=== PATIENT | male | born 1965 | race Caucasian/White ===

== ENCOUNTER → 2019-02-14 09:12 | Outpatient (CLI) | payer BC, SELFPAY ==
[2019-02-14 09:41] LABS: Basophils % 0.2 % (0.1-2.0); Eosinophils # 0.1 K/mm3 (0.0-0.4); Eosinophils % 0.7 % (0.1-12.0); Hematocrit 43.1 % (42.0-52.0); Hemoglobin 13.9 g/dL (14.1-18.0); Lymphocytes # 1.3 K/mm3 (0.7-4.5); Mean Corpuscular HGB Conc 32.4 g/dL (31.8-35.4); Mean Corpuscular Hemoglobin 28.5 pg (27.0-31.2); Mean Platelet Volume 6.6 fl (7.4-10.4); Monocytes # 0.3 K/mm3 (0.1-1.0); Monocytes % 3.5 % (1.7-9.3); Neutrophils # 5.8 K/mm3 (1.8-7.8); Neutrophils % 78.6 % (37.0-80.0); Platelet Count 312 K/mm3 (142-424); Red Cell Distribution Width 14.7 % (11.5-17.5); White Blood Count 7.4 K/mm3 (4.8-10.8)
[2019-02-14 11:48] LABS: Alanine Aminotransferase 29 U/L (12-78); Albumin Level 3.3 gm/dL (3.4-5.0); Albumin/Globulin Ratio 0.9 (1.1-1.8); Alkaline Phosphatase 88 U/L (46-116); Anion Gap 14.1 mEq/L (5-15); Aspartate Amino Transferase 11 U/L (15-37); Bilirubin,Total 0.4 mg/dL (0.2-1.0); Blood Urea Nitrogen 16 mg/dL (7-18); Calcium 8.7 mg/dL (8.5-10.1); Carbon Dioxide 26 mmol/L (21.0-32.0); Chloride 106 mmol/L (98-107); Cholesterol 184 mg/dL (140-200); Creatinine,Serum 0.76 mg/dL (0.70-1.30); Estimated Glomerular Filt Rate 107 ml/min (>60); GFR (African American) 129 ML/MIN (>60); Globulin 3.7 gm/dl (1.3-3.2); Glucose 112 mg/dL (74-106); HDL Cholesterol 37 mg/dL (27-67); LDL Cholesterol 138 mg/dL (0-130); Potassium 4.1 mmoL/L (3.5-5.1); Sodium 142 mmol/L (136-145); Thyroid Stimulating Hormone 0.73 uIU/ml (0.358-3.740); Triglycerides 44 mg/dL (30-200); VLDL Cholesterol 9 mg/dL (0-40)
[2019-02-15 16:38] LABS: Testosterone,Total 38 ng/dL (264-916); Vitamin B12 605 pg/mL (232-1245)
[2019-02-17 06:56] LABS: Deamidated Gliadin Abs, IgA 5 units (0-19); Deamidated Gliadin Abs, IgG 2 units (0-19); Endomysial IgA Antibody Negative (Negative); Tissue Transglutaminase IgA Ab <2 U/mL (0-3); Tissue Transglutaminase IgG Ab <2 U/mL (0-5)
[2019-02-19 06:06] LABS: Reticulin IgA Antibody Negative titer (Neg:<1:2.5)
[2019-02-19 06:19] LABS: Miscellaneous Test COMMENT:
== END ==
PROVIDERS: Nurse Practitioner; Visit Provider Nurse Practitioner Family
DX: I49.9 Cardiac arrhythmia, unspecified (principal); E29.1 Testicular hypofunction; D51.8 Other vitamin B12 deficiency anemias; R21 Rash and other nonspecific skin eruption
CPT/HCPCS: 36415; 80053; 80061; 82607; 83516; 84403; 84439; 84443; 85025; 86255; 86256

== ENCOUNTER → 2019-03-06 07:41 | Outpatient (CLI) | payer BC, SELFPAY ==
[2019-03-07 18:06] LABS: Testosterone,Total 43 ng/dL (264-916)
== END ==
PROVIDERS: Visit Provider Internal Medicine Adolescent Medicine
DX: R79.89 Other specified abnormal findings of blood chemistry (principal)
CPT/HCPCS: 36415; 84403

== ENCOUNTER → 2020-09-06 08:14 | Outpatient (CLI) | payer OTHER, SELFPAY ==
[2020-09-06 14:08] LABS: Alanine Aminotransferase 19 U/L (12-78); Albumin Level 4.2 g/dl (3.5-5.0); Albumin/Globulin Ratio 1.3 (1.1-1.8); Alkaline Phosphatase 81 U/L (38-126); Anion Gap 12.2 mEq/L (5-15); Aspartate Amino Transferase 23 U/L (17-59); Bilirubin,Total 0.7 mg/dl (0.2-1.3); Blood Urea Nitrogen 15 mg/dl (9-20); Calcium 9.5 mg/dl (8.4-10.2); Carbon Dioxide 25 mmol/L (22.0-30.0); Chloride 104 mmol/L (98-107); Chol/HDL Ratio 7.3 (1-3.5); Cholesterol 196 mg/dl (140-200); Estimated Glomerular Filt Rate 100 ml/min (>60); GFR (African American) 121 ML/MIN (>60); Globulin 3.3 g/dL (1.3-3.2); Glucose 106 mg/dl (74-100); HDL Cholesterol 27 mg/dl (40-60); Potassium 4.2 mmoL/L (3.5-5.1); Sodium 137 mmol/L (136-145); Total Protein,Serum 7.5 g/dl (6.3-8.2); Triglycerides 201 mg/dl (30-150); VLDL Cholesterol 40 mg/dL (0-40)
[2020-09-06 14:29] LABS: Basophils # 0.1 K/mm3 (0-0.2); Basophils % 1.5 % (0.1-2.0); Eosinophils # 0.3 K/mm3 (0.0-0.4); Eosinophils % 6.6 % (0.1-12.0); Hematocrit 39.9 % (42.0-52.0); Hemoglobin 12.8 g/dL (14.1-18.0); Lymphocytes # 1.5 K/mm3 (0.7-4.5); Lymphocytes % 36.9 % (10-50); Mean Corpuscular Hemoglobin 29.1 pg (27.0-31.2); Mean Corpuscular Volume 90.8 fl (80-94); Mean Platelet Volume 8.4 fl (7.4-10.4); Monocytes # 0.3 K/mm3 (0.1-1.0); Monocytes % 7.9 % (1.7-9.3); Neutrophils % 47.1 % (37.0-80.0); Platelet Count 266 K/mm3 (142-424); Red Blood Count 4.39 M/mm3 (4.60-6.20); Red Cell Distribution Width 13.9 % (11.5-17.5); White Blood Count 4.1 K/mm3 (4.8-10.8)
[2020-09-06 14:39] LABS: Thyroid Stimulating Hormone 2.89 uIU/mL (0.465-4.68)
[2020-09-06 14:57] LABS: Vitamin B12 590 pg/mL (239-931)
== END ==
PROVIDERS: Visit Provider Emergency Medicine
DX: R42 Dizziness and giddiness (principal); R00.1 Bradycardia, unspecified; I10 Essential (primary) hypertension
CPT/HCPCS: 36415; 80053; 80061; 82607; 84443; 85025

== ENCOUNTER → 2021-03-27 08:00 | Outpatient (CLI) | payer OTHER, SELFPAY ==
[2021-03-28 09:12] LABS: Basophils # 0.1 K/mm3 (0-0.2); Basophils % 1.2 % (0.1-2.0); Eosinophils # 0.2 K/mm3 (0.0-0.4); Eosinophils % 3.1 % (0.1-12.0); Hematocrit 48.1 % (42.0-52.0); Hemoglobin 14.7 g/dL (14.1-18.0); Lymphocytes # 1.8 K/mm3 (0.7-4.5); Lymphocytes % 29.7 % (10-50); Mean Corpuscular HGB Conc 30.7 g/dL (31.8-35.4); Mean Corpuscular Hemoglobin 30.2 pg (27.0-31.2); Mean Corpuscular Volume 98.4 fl (80-94); Mean Platelet Volume 9.7 fl (7.4-10.4); Monocytes # 0.6 K/mm3 (0.1-1.0); Monocytes % 10.3 % (1.7-9.3); Neutrophils # 3.4 K/mm3 (1.8-7.8); Neutrophils % 55.7 % (37.0-80.0); Platelet Count 339 K/mm3 (142-424); Red Blood Count 4.89 M/mm3 (4.60-6.20); Red Cell Distribution Width 14.7 % (11.5-17.5)
[2021-03-28 10:22] LABS: Alanine Aminotransferase 15 U/L (12-78); Albumin Level 3.8 g/dl (3.5-5.0); Albumin/Globulin Ratio 1.2 (1.1-1.8); Alkaline Phosphatase 81 U/L (38-126); Anion Gap 10.7 mEq/L (5-15); Aspartate Amino Transferase 24 U/L (17-59); Bilirubin,Total 0.3 mg/dl (0.2-1.3); Blood Urea Nitrogen 10 mg/dl (9-20); Calcium 8.8 mg/dl (8.4-10.2); Carbon Dioxide 29 mmol/L (22.0-30.0); Chloride 106 mmol/L (98-107); Chol/HDL Ratio 7.1 (1-3.5); Cholesterol 177 mg/dl (140-200); Estimated Glomerular Filt Rate 117 ml/min (>60); GFR (African American) 141 ML/MIN (>60); Globulin 3.3 g/dL (1.3-3.2); Glucose 98 mg/dl (74-100); HDL Cholesterol 25 mg/dl (40-60); Potassium 4.7 mmoL/L (3.5-5.1); Sodium 141 mmol/L (136-145); Total Protein,Serum 7.1 g/dl (6.3-8.2); Triglycerides 151 mg/dl (30-150); VLDL Cholesterol 30 mg/dL (0-40)
[2021-03-28 10:33] LABS: Direct LDL Cholesterol 107.03 mg/dL (100-129)
[2021-03-28 11:11] LABS: Vitamin B12 415 pg/mL (239-931)
[2021-04-02 09:09] LABS: Testosterone, Total, LC/MS 261.8 ng/dL (264.0-916.0); Testosterone,Free 5.8 pg/mL (7.2-24.0)
== END ==
PROVIDERS: Visit Provider Internal Medicine Adolescent Medicine
DX: I10 Essential (primary) hypertension (principal); D51.8 Other vitamin B12 deficiency anemias; E29.1 Testicular hypofunction
CPT/HCPCS: 80053; 80061; 82607; 84402; 84403; 85025

== ENCOUNTER → 2021-08-08 08:50 | Outpatient (CLI) | payer BC, SELFPAY ==
[2021-08-08 15:00] LABS: Chloride 104 mmol/L (98-107); Potassium 4.6 mmoL/L (3.5-5.1); Sodium 137 mmol/L (136-145)
[2021-08-08 15:03] LABS: Blood Urea Nitrogen 20 mg/dl (9-20); Estimated Glomerular Filt Rate 87 ml/min (>60); GFR (African American) 106 ML/MIN (>60)
[2021-08-08 15:04] LABS: Calcium 9.2 mg/dl (8.4-10.2); Glucose 100 mg/dl (74-100)
[2021-08-08 16:53] LABS: Anion Gap 10.6 mEq/L (5-15); Carbon Dioxide 27 mmol/L (22.0-30.0)
== END ==
PROVIDERS: Visit Provider Ophthalmology
DX: D49.2 Neoplasm of unspecified behavior of bone, soft tissue, and skin (principal)
CPT/HCPCS: 36415; 80048

== ENCOUNTER → 2021-12-05 09:02 | Outpatient (CLI) | payer BC, SELFPAY ==
--- NOTE | 2021-12-05 09:09 | US_ITS ---
FINAL REPORT CLINICAL HISTORY: LIVER CYST COMPARISON: September 17, 2016 FINDINGS: Sonographic images of the right upper quadrant were obtained. The pancreas is partially obscured. There are small presumed cysts in the liver measuring up to 21 x 11 x 9 mm. There is mild fatty infiltration. There is sludge in the gallbladder without evidence of gallstones. There is no evidence of biliary ductal dilatation.The common duct measures 4mm. The right kidney measures 11.6 cm in length. There is a 4 mm right renal stone. IMPRESSION: Small presumed cysts in the liver. 4 mm right renal stone. Reviewed, Interpreted and Dictated by Jose Best III, MD Transcribed by Alisia Basilio Authenticated and [facility]
== END ==
PROVIDERS: PCP Internal Medicine Adolescent Medicine; Visit Provider Nurse Practitioner Family
DX: K76.89 Other specified diseases of liver (principal)
CPT/HCPCS: 76705

== ENCOUNTER 2023-07-22 16:36 | Outpatient (CLI) | payer BC, SELFPAY ==
[2023-07-22 22:06] LABS: Hemoglobin A1C 5.4 % (4.0-6.0)
== END 2023-07-22 23:59 ==
LOC: LAB.DROPOF 16:37
PROVIDERS: PCP Family Medicine; Visit Provider Family Medicine
DX: E11.9 Type 2 diabetes mellitus without complications (principal)
CPT/HCPCS: 83036

== ENCOUNTER 2023-08-12 09:31 | Outpatient (CLI) | payer BC, SELFPAY ==
--- NOTE | 2023-08-12 09:40 | XR_ITS ---
FINAL REPORT CLINICAL HISTORY: Back pain, numbness tingling bilateral feet FINDINGS: LUMBAR SPINE AP and lateral views were obtained. There is no acute fracture or malalignment. There are mild degenerative changes with mild leftward curvature. Vertebrae are normal height. Prevertebral soft tissues are unremarkable. IMPRESSION: No acute bony abnormality. Reviewed, Interpreted and Dictated by Jose Best III, MD Transcribed by Camilla Wesley Authenticated and [facility]
[2023-08-12 10:25] LABS: Basophils # 0.1 K/mm3 (0-0.2); Basophils % 0.9 % (0.1-2.0); Eosinophils # 0.4 K/mm3 (0.0-0.4); Eosinophils % 6.4 % (0.1-12.0); Hematocrit 44.6 % (42.0-52.0); Hemoglobin 14.9 g/dL (14.1-18.0); Lymphocytes # 2.1 K/mm3 (0.7-4.5); Lymphocytes % 35.9 % (10-50); Mean Corpuscular HGB Conc 33.5 g/dL (31.8-35.4); Mean Corpuscular Hemoglobin 30.7 pg (27.0-31.2); Mean Corpuscular Volume 91.6 fl (80-94); Mean Platelet Volume 7.4 fl (7.4-10.4); Monocytes # 0.4 K/mm3 (0.1-1.0); Monocytes % 6.8 % (1.7-9.3); Neutrophils # 2.9 K/mm3 (1.8-7.8); Neutrophils % 49.9 % (37.0-80.0); Platelet Count 249 K/mm3 (142-424); Red Blood Count 4.87 M/mm3 (4.60-6.20); White Blood Count 5.9 K/mm3 (4.8-10.8)
[2023-08-12 11:19] LABS: Alanine Aminotransferase 29 U/L (12-78); Albumin/Globulin Ratio 1.4 (1.1-1.8); Alkaline Phosphatase 78 U/L (38-126); Anion Gap 11.1 mEq/L (5-15); Aspartate Amino Transferase 29 U/L (17-59); Bilirubin,Total 0.4 mg/dl (0.2-1.3); Blood Urea Nitrogen 17 mg/dl (9-20); Calcium 9.1 mg/dl (8.4-10.2); Carbon Dioxide 27 mmol/L (22.0-30.0); Chloride 106 mmol/L (98-107); Estimated Glomerular Filt Rate 116 ml/min (>60); GFR (African American) 140 ML/MIN (>60); Globulin 2.9 g/dL (1.3-3.2); Glucose 115 mg/dl (74-100); Potassium 4.1 mmoL/L (3.5-5.1); Sodium 140 mmol/L (136-145); Total Protein,Serum 6.9 g/dl (6.3-8.2)
[2023-08-12 12:25] LABS: Vitamin B12 519 pg/mL (239-931)
[2023-08-12 14:45] LABS: Thyroid Stimulating Hormone 1.93 uIU/mL (0.465-4.68)
[2023-08-13 14:30] LABS: Albumin 3.7 g/dL (2.9-4.4); Alpha-1-Globulin 0.2 g/dL (0.0-0.4); Alpha-2-Globulin 0.7 g/dL (0.4-1.0); Gamma Globulin 1.4 g/dL (0.4-1.8); Protein, Total 7.1 g/dL (6.0-8.5)
[2023-08-15 12:14] LABS: PDF SCANNED IMAGE
== END 2023-08-12 23:59 ==
LOC: LAB 09:32
PROVIDERS: PCP Family Medicine; Visit Provider Nurse Practitioner Family
DX: M54.50 Low back pain, unspecified (principal); R20.0 Anesthesia of skin; R20.2 Paresthesia of skin; E11.9 Type 2 diabetes mellitus without complications; G47.33 Obstructive sleep apnea (adult) (pediatric)
CPT/HCPCS: 36415; 72100; 80053; 82607; 82746; 84155; 84165; 84443; 85025; 86334

== ENCOUNTER 2024-09-15 15:51 | Outpatient (CLI) | payer BC, MEDICAID, SELFPAY | END 2024-09-15 23:59 | disposition home or self-care (01) | LOC: RT 15:52 | PROVIDERS: PCP Internal Medicine Adolescent Medicine; Visit Provider Internal Medicine Adolescent Medicine | DX: R00.2 Palpitations (principal) | CPT/HCPCS: 93225; 93226 ==

== ENCOUNTER 2025-03-11 11:30 | Outpatient (CLI) | payer MEDICAID, SELFPAY ==
--- OUTSIDE RECORDS SUMMARY | 2025-03-11 11:32 | XMS_ITS | Continuity of Care Document ---
Author Organization [facility]. If a dditional information is needed, contact Health Information Management at [phone] Address [address] [place] [address] Phone Care Team Providers Care Private Banker Name Role Phone Unavailable Unavailable Unavailable Unavailable Unavailable Unavailable Problems Patient encounter status Onset:08-Oct-2018 Evita Conroy MD Status:Acute Obstructive sleep apnea synd francie Onset:08-Oct-2018 Evita Conroy MD Hypertensive disorder Onset:08-Oct-2018 Evita Conroy MD Clinical finding absent Onset:08-Oct-2018 Evita Conroy MD Status:Acute Obstructive sleep apnea synd francie Onset:08-Oct-2018 Evita Conroy MD Status:Acute Hypertensive disorder Onset:08-Oct-2018 Evita Conroy MD Status:Acute Palpitations Onset:08-Oct-2018 Evita Conroy MD Status:Acute Testosterone level below ref erence range Onset:08-Oct-2018 Evita Conroy MD Status:Acute Ventricular tachycardia Onset:07-Oct-2018 Chandler Robledo Status:Acute Palpitations Onset:07-Oct-2018 Chandler Robledo Status:Acute Functional Status Functional finding 08-Oct-2018 Functional finding 07-Oct-2018 Functional finding 07-Oct-2018 Functional finding 07-Oct-2018 Allergies and Adverse Reactions No Known Allergies(Allergy) Onset: 07-Oct-2018 Medications carvedilol;3.125 MG ORAL Jennifer ly Start:07-Oct-2018 Comments:3.125 mg PO DAILY Social History Smoking Status Never smoked tobacco Recorded: 07-Oct-2018
--- OUTSIDE RECORDS SUMMARY | 2025-03-11 11:34 | XMS_ITS | Clinical Summary ---
Author Organization [facility] Address [address] [place] [address] Care Team Providers Care Franchise Sales Manager Name Role Phone Robi Salcedo MD Primary Care Provider [phone] Allergies No known active allergies Medications Multiple Vitamins-Minera ls (PRESERVISION AREDS 2+MULTI VIT PO) 9 Active NUTRITIONAL SUPPLEMENTS PO Take by mouth. Active metoprolol succinate XL (TOPROL-XL) 50 MG 24 hr tablet Take 1/2 to 1 tablet daily 90 tablet 3 3 Active Additional Information Patient taking differently: 50 mg Oral Daily, (No instructions reported), Informant: Self, Reported on 04/27/2024 furosemide (LASIX) 20 MG tablet Take 1 tablet by mouth Daily. 4 Active clotrimazole-be tamethasone (LOTRISONE) 1-0.05 % cream Every 12 (Twelve) Hours. 4 Active rosuvastatin (CRESTOR) 10 MG tablet Take 1 tablet by mouth Daily. 4 Active neomycin-polymy timmy-dexamethame thasone (POLYDEX) 3.5-32439-4.1 ointment ophthalmic ointment Apply 1 cm strip into the lower lid of the left eye 2 (Two) Times a Day. 3.5 g 12/21/2024 11:59 AM EDT 5 Active Active Problems Problem Noted Date Diagnosed Date Precordial chest pain 04/28/2024 Assessment & Plan (04/28/2024 12:11 PM EDT): Patient reports intermittent episodes of left-sided chest pain on exertion. 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 Stress echo for further evaluation Palpitations 09/17/2023 Assessment & Plan (09/17/2023 3:51 PM EDT): Patient reports worsening palpitations since last office visit. - 5-day Holter monitor for further evaluation. Shortness of breath 09/17/2023 Assessment & Plan (04/28/2024 12:11 PM EDT): Worsening shortness of breath on exertion. 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 Most recent echocardiogram did not show pulmonary hypertension caused by the fistula. -Stress test to rule out ischemia Assessment & Plan (09/17/2023 3:51 PM EDT): Mild shortness of breath on exertion. 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 Fistula from LAD to pulmonary artery noted. Normal LVEF Assessment & Plan (04/28/2024 12:14 PM EDT): Cardiac catheterization (10/09/2018): Normal coronary arteries. Fistula from LAD to pulmonary artery noted. Normal LVEF. Echocardiogram ordered at last visit to assess for pulmonary hypertension caused by fistula. Echocardiogram completed today did not reveal pulmonary hypertension. - Continue aspirin and crestor at current doses Assessment & Plan (10/23/2023 12:45 PM EDT): Cardiac catheterization (10/09/2018): Normal coronary arteries. Fistula from LAD to pulmonary artery noted. Normal LVEF. Echocardiogram ordered at last visit to assess for pulmonary hypertension caused by fistula. Echocardiogram completed today did not reveal pulmonary hypertension. - Continue aspirin 81 mg once daily. - Discuss statin medication at follow up visit. Assessment & Plan (09/17/2023 3:50 PM EDT): Cardiac catheterization (10/09/2018): Normal coronary arteries. Fistula from LAD to pulmonary artery noted. Normal LVEF - Continue aspirin 81 mg once daily. - Update echocardiogram to assess for pulmonary hypertension caused by fistula. Assessment & Plan (03/20/2023 1:36 PM EDT): Cardiac catheterization (10/09/2018): Normal coronary arteries. Fistula from LAD to pulmonary artery noted. Normal LVEF - Start aspirin 81 mg once daily. -Will need to order an echo at next office visit to assess for pulmonary hypertension caused by fistula. Patient is currently asymptomatic Ventricular tachycardia 10/08/2018 Overview (10/09/2018): [facility] presentation with near syncope and NS ventricular tachycardia noted on telemetry, 10/08/18 Cardiac catheterization (10/09/2018): Minimal CAD. Fistula from LAD to pulmonary artery noted. Normal LVEF Assessment & Plan (04/28/2024 12:13 PM EDT): Electrophysiology study 10/09/2018:1. Normal sinus rhythm at baseline. Normal Sinus Node function. Normal Av node function. Normal Ventricular refractory period. No induction of arrhthymias seen. Holter monitor recently completed due to increasing palpitations, which revealed some nonsustained ventricular tachycardia-all brief. 3 events noted, longest was 6 beats and fastest is 172 bpm. He has noticed a decrease in palpitations since last office visit. He has been under a lot of stress lately and feels like that could have been contributing to his symptoms. We discussed increasing metoprolol dose, he would like to monitor symptoms for now and if he notices an increase in palpitations, he will let us know and we can increase metoprolol to either 75 mg or 100 mg daily. - Continue metoprolol succinate 50 mg once daily Assessment & Plan (10/23/2023 12:40 PM EDT): Electrophysiology study 10/09/2018:1. Normal sinus rhythm at baseline. Normal Sinus Node function. Normal Av node function. Normal Ventricular refractory period. No induction of arrhthymias seen. Holter monitor recently completed due to increasing palpitations, which revealed some nonsustained ventricular tachycardia-all brief. 3 events noted, longest was 6 beats and fastest is 172 bpm. He has noticed a decrease in palpitations since last office visit. He has been under a lot of stress lately and feels like that could have been contributing to his symptoms. We discussed increasing metoprolol dose, he would like to monitor symptoms for now and if he notices an increase in palpitations, he will let us know and we can increase metoprolol to either 75 mg or 100 mg daily. - Continue metoprolol succinate 50 mg once daily. Assessment & Plan (03/19/2023 1:18 PM EDT): 2019 Electrophysiology study 10/09/2018:1. Normal sinus rhythm at baseline. Normal Sinus Node function. Normal Av node function. Normal Ventricular refractory period. No induction of arrhthymias seen. - Continue metoprolol succinate 50 mg once daily. - Discussed 7-day Holter monitor due to recent increase in palpitations. He would like to check with his insurance prior and will let us know if he decides to proceed with the heart monitor. Assessment & Plan (10/24/2022 12:54 PM EDT): Few episodes recently. Stop carvedilol. Start long-acting metoprolol for better compliance. EKG sinus rhythm today. Near syncope 10/08/2018 CAD (coronary artery disease) 07/01/2012 Assessment & Plan (10/24/2022 12:53 PM EDT): Only mild on cath. Stop carvedilol and start metoprolol. Starting aspirin. Diabetes mellitus HTN (hypertension) Assessment & Plan (10/23/2023 12:45 PM EDT): Hypertension is stable . Continue current treatment regimen. Dietary sodium restriction. Regular aerobic exercise. Blood pressure will be reassessed at the next regular appointment. Assessment & Plan (03/19/2023 1:16 PM EDT): Hypertension is stable . Continue current treatment regimen. Dietary sodium restriction. Regular aerobic exercise. Blood pressure will be reassessed at the next regular appointment. Sleep apnea Assessment & Plan (04/28/2024 12:10 PM EDT): Doing well on PAP therapy with good control and compliance. Download reviewed and interpreted today. AHI 0.4. - Continue PAP therapy at current settings Assessment & Plan (10/23/2023 12:49 PM EDT): Doing well on PAP therapy with good control and compliance. Download reviewed and interpreted today. AHI 0.5. - Continue PAP therapy at current settings. Assessment & Plan (09/17/2023 3:50 PM EDT): Patient did not bring device chip in today so download unavailable. He reports that he uses his CPAP consistently, he is having trouble with his mask leaking and has not replaced it in quite some time. He has received replacement device and is no longer on a recalled device. He is benefiting from PAP therapy with plan to continue at current settings Assessment & Plan (03/19/2023 1:12 PM EDT): Patient did not bring device chip in today so download unavailable. He reports that he uses his CPAP consistently, he is having trouble with his mask leaking and has not replaced it in quite some time. He has received replacement device and is no longer on a recalled device. He is benefiting from PAP therapy with plan to continue at current settings. Assessment & Plan (10/24/2022 12:52 PM EDT): Benefiting from PAP therapy. Plan to continue. See DME for mask fitting Family History Medical History Relation Name Comments No Known Problems Father No Known Problems Mother Relation Name Status Comments Father Mother Social History Tobacco Use Types Packs/Day Years Used Date Smoking Tobacco: Never Passive Smoke Exposure: Never Smokeless Tobacco: Never Tobacco Cessation:Counseling Given: Not Answered Alcohol Use Standard Drinks/Week Comments No 0 (1 standard drink = 0.6 oz pur e alcohol) AUDIT-C Answer Date Recorded Frequency of Alcohol Consumption Never 10/08/2018 Average Number of Drinks Not on file 019 Frequency of Binge Drinking Not on file 09/29 Abuse Screen Answer Date Recorded Unsafe at Home or Work/School Not on file Feels Threatened by Someone? Not on file 03/2023 Does Anyone Keep You from Co ntacting Others or Doint Things Outside the Home? Not on file 04/08/2023 Physical Sign of Abuse Present Not on file 1 Housing Stability Answer Date Recorded Current Living Arrangements Not on file 03/2023 Potentially Unsafe Housing Conditions Not on keyanna e 04/08/2023 Family and Community Support Answer Allen e Recorded Help with Day-to-Day Activities Not on file 04/08/2023 Lonely or Isolated Not on file 04/08/2023 Employment Answer Date Recorded Do you want help finding or keeping work or a raina b? Not on file 04/08/2023 Disabilities Answer Date Recorded Concentrating, Remembering, or Making Decisions Difficulty Not on file 04/08/2023 Doing Errands Independently Difficulty Not on fi le 04/08/2023 Education Answer Date Recorded Help with school or training? Not on file Preferred Language Not on file 04/08/2023 Sex and Gender Information Value Date Recorded Sex Assigned at Not on file Legal Sex Male 10:47 AM EDT Gender Identity Not on file Sexual Orientation Not on file Last Filed Vital Signs Vital Sign Reading Time Taken Comments Blood Pressure 126/72 04/27/2024 9:39 AM EDT Pulse 78 04/27/2024 9:39 AM EDT Temperature 36.6 C (97.8 F) 10/09/2018 3:53 AM EDT Respiratory Rate 12 10/09/2018 1:18 PM EDT Oxygen Saturation 98% 04/27/2024 9:39 AM EDT Inhaled Oxygen Concentration - - Weight 116 kg (256 lb) 04/27/2024 9:39 AM EDT Height 185.4 cm (6' 1 ) 04/27/2024 9:39 AM EDT Body Mass Index 33.78 04/27/2024 9:39 AM EDT Plan of Treatment Health Maintenance Due Date Last Done Comments DIABETIC EYE EXAM 1975 DIABETIC FOOT EXAM 1975 URINE MICROALBUMIN-CREATININ E RATIO (uACR) 1975 Pneumococcal Vaccine 50+ (1 of 2 - PCV) 01/15/1984 COLOGUARD 2010 COLON CANCER SCREENING 5 YEA R SIGMOIDOSCOPY 2010 COLONOSCOPY 2010 [address] CANCER SCREENING 2010 CT COLONOGRAPHY 2010 FECAL OCCULT BLOOD TEST 2010 FIT Testing (1 year) 2010 ZOSTER VACCINE (1 of 2) 2015 ANNUAL PHYSICAL 10/08/2018 HEMOGLOBIN A1C 10/08/2018 HEPATITIS C SCREENING 10/08/2018 COVID-19 Vaccine (2024-08 6 season) 2025 05/09/2022, 03/25/2021, 08/30/2020, Additional history exists INFLUENZA VACCINE 03/31/2025 03/25/2021, 04/21/2019 TDAP/TD VACCINES (2 - Td or Tdap) 11/15/2029 020 Medical Devices Implanted Type Area Twister In Device Identifier Shelf Expiration Date Model / Serial / Lot Icm Confirm Rx 1.4cc [id number] - [id number] - [id number] Implanted:Qty: 1 on 10/09/2018 by Efrain Avina MD at [facility] 10/21/2019 [id number] / [id number] / Insurance [facility] PPO Member Subscriber Plan / Payer (Ef fective 2018-Present) Name:Ananth Jackson Relation to Subscriber:Self Name:Ananth Jackson Payer ID:[id number] (NAIC) Type:Not on file Address: [facility] [address] [place] [id number] Advance Directives * CPR (Attempt to Resuscitate) (Latest Code Status on File) Date Activated Date Inactivated Comments 10/09/2018 9:17 AM 10/09/2018 9:26 PM Question Answer Comments Code Status (Patient has no pulse and is not breathing): CPR (Attempt to Resuscitate) Medical Interventions (Patie nt has pulse or is breathing): Full Care Teams Franchise Sales Manager Relationship Specialty Start Date End Date Robi Salcedo MD [address] [place] [address] PCP - General Family Medicine 10/14/23
== END 2025-03-11 23:59 | disposition home or self-care (01) ==
LOC: RT 11:31
PROVIDERS: PCP Family Medicine; Visit Provider Physician Assistant
DX: I49.1 Atrial premature depolarization (principal); I47.19 Other supraventricular tachycardia; I49.3 Ventricular premature depolarization; I47.29 Other ventricular tachycardia
CPT/HCPCS: 93270

== ENCOUNTER 2025-03-26 09:21 | Outpatient (CLI) | payer MEDICAID, SELFPAY ==
--- OUTSIDE RECORDS SUMMARY | 2024-10-03 17:30 | XMS_ITS ---
Author Organization [facility] Address [address] [place] [address] Care Team Providers Care Business Unit Leader Name Role Phone Martin Guerra Primary Care Provider [phone] Migration, Provider Unavailable Unavailable [facility]IT [facility] Conversion Encounter Medications Medication SIG (Take, [address] [place] [address] 10/03/2024 Provider Migration Palpitations R00.2 Assessments Encounter Date Diagnosis (ICD Code) Assessment Notes Treatment Notes Treatment Clinical Notes Section Notes 10/03/2024 Palpitations (ICD-10 - R00.2) Plan Of Treatment Medication Medication Name Sig Start Date Stop Date Notes Metoprolol Tartrate 50 MG 1 tab(s) orall y 2 times a day; Duration: 30 days 09/15/2024 Progress Notes * Ananth MISHRA ADOB:[birth year] (60 yo M)Acc No.[id number]:10/03/2024 Patient: Ananth HINES Provider: Raisa wood Migration :1965 A ge:59 Y S ex:Male Date:10/03/2024 Address:[address] [place] [address] [place] [place], [id number] Pcp:Martin Guerra Subjective: * Chief Complaints: * [...] Electronic signature of Prov ider Migration on 03/26/2025 at 09:30 AM EDT Sign off status: Pending * Provider: Raisa Coleman Date: 0 10/03/2024 Generated for Guillermina navarro/Nataly/Ruddyitting on: 0 03/26/2025 09:30 AM EDT
--- OUTSIDE RECORDS SUMMARY | 2025-01-26 08:30 | XMS_ITS ---
Author Organization [facility] Address [address] [place] [address] Care Team Providers Care Processor Helper Name Role Phone Martin Guerra Primary Care Provider Allergies No Known Allergies REASON FOR VISIT med ck, refills, Labs - A1C, discuss weight loss, Wegovy ?, hernia, rash in groin Medications Medication SIG (Take, Route, Frequency, Duration) Notes Start Date End Date Status Testosterone 100 MG/ML 1ml Intramuscular weekly; Duration: 30 days Active Lasix 20 MG 1 tab(s) orally once a day Active Rosuvastatin Calcium 10 MG 1 tab(s) oral ly once a day; Duration: 90 days 02/27/2024 Active ICaps AREDS Formula - as directed orally ; Duration: 30 day(s) Active C-PAP MACHINE Active Triamcinolone Acetonide 0.1 % 1 yuki applied topically 3 times a day; Duration: 7 days 07/03/2024 Active Metoprolol Tartrate 50 mg TAKE 1 TABLET 2 TIMES EACH DAY; Duration: 30 Active Clotrimazole-Betamethasone 1-0.05 % 1 application Externally Twice a day; Duration: 14 days 01/26/2025 Active Semaglutide (2 MG/DOSE) 8 MG/3ML 0.25 Subcutaneous weekly; Duration: 30 days 01/26/2025 Active Clotrimazole 1 % 1 yuki applied topica lly 2 times a day; Duration: 7 days 07/03/2024 Active Problems Problem Type SNOMED Code ICD Code Onset Dates Problem Status W/U Status Risk Notes Problem Type 2 diabetes mellitus with other specified complication, without long-term current use of insulin (E11.69) Active confirmed Vital Signs Temperature 98 degrees Fahrenheit 01/26/2025 Heart Rate 74 /min 01/26/2025 Blood pressure systolic 126 mm Hg 01/27/20 25 Blood pressure diastolic 88 mm Hg 025 Height 6 ft 1 in in 01/26/2025 Weight 265 lbs 01/26/2025 BMI 34.96 kg/m2 01/26/2025 Encounters Encounter Location Date Provider Diagnosis [facility] [address] [address] 01/26/2025 Martin Guerra Type 2 diabetes mellitus with other specified complication, without long-term current use of insulin E11.69 ; Tinea cruris B35.6 and Androgen deficiency E29.1 Assessments Encounter Date Diagnosis (ICD Code) Assessment Notes Treatment Notes Treatment Clinical Notes Section Notes 01/26/2025 Type 2 diabetes mellitus with other specified complication, without long-term current use of insulin (ICD-10 - E11.69) We discussed retrying Ozempic and refilled his prescription. We will f/u in four weeks to assess if he is having any side effects from the medication. 01/26/2025 Tinea cruris (ICD-10 - B35.6) We discussed applying clotrimazole-beta methasone to the area in his perineum and inguinal where he is experiending the rash. 01/26/2025 Androgen deficiency (ICD-10 - E29.1) We refilled his prescription for Testosterone suspensions. Plan Of Treatment Medication Medication Name Sig Start Date Stop Date Notes Testosterone 100 MG/ML 1ml Intramuscular weekly; Duration: 30 days Clotrimazole-Betamethasone 1-0.05 % 1 application Externally Twice a day; Duration: 14 days 01/26/2025 Semaglutide (2 MG/DOSE) 8 MG/3ML 0.25 Subcutaneous weekly; Duration: 30 days 01/26/2025 Treatment Notes Assessment Notes Type 2 diabetes mellitus wit h other specified complication, without long-term current use of insulin We discussed retrying Ozempic and refill ed his prescription. We will f/u in four weeks to assess if he is having any side effects from the medication. Tinea cruris We discussed applyin g clotrimazole-betamethasone to the area in his perineum and inguinal where he is experiending the rash. Androgen deficiency We refilled his pres cription for Testosterone suspensions. Next Appt Details Follow Up: 4 Weeks, Reason: Progress Notes * Ananth MISHRA ADOB:[birth year] (60 yo M)Acc No.[id number]:01/26/2025 Progress Notes Patient: Ananth HINES Provider: Rick Guerra MD :1965 A ge:60 Y S ex:Male Date:01/26/2025 Address:[address] [place] [address] [id number] Subjective: * Chief Complaints: * 1 . Med ck, refills. 2. Labs - A1C. 3. discuss weight loss, Wegovy ?. 4. Hernia. 5. Rash in groin. * HPI: g en: Mr. Mishra presents for a three month f/u. His main concern is weight loss. He recently saw a friend on a semaglutide, and he is interested in starting a semaglutide for weight loss. He has tried diet in the past, but has not seen the results that he did previously. He tried ozempic in the past and saw results but he had a change in his insurance and was unable to receive it. He has been experiencing episodes where he gets dizzy and then has to lay down where he feels as if his heart stops . He does not notice this when he takes his Metoprolol on a regular schedule. He has had an umbilical hernia for the past year. He states that it is tender to palpation. He needs a refill on testosterone injections. He is experiencing a rash in his inguinal areas and his perineum. He states that it itches really bad. He has used medications in the past that have gotten rid of it. 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 * Surgical History: r eduction of bilateral breast tissue age 12, Heart cath , colonoscopy 05/2015, eye surgery . * Hospitalization/Major Diagno stic Procedure: E nlarged pituatary teenager, Pre- syncope, EKG abnormal 09/2018. * Family History: F ather: , diagnosed with Cancer. M other: alive, diagnosed with Heart Disease.?Paternal Grand Father: . P aternal Grand Mother: . M aternal Grand Father: . M aternal Grand Mother: alive. S iblings: alive. C hildren: alive. 1 brother(s) - healthy. 1 son(s) - healthy. . * Social History: S moking A re you a:: nonsmoker. R ecreational drug use: no. Exercise: yes. Home smoke detector use: yes. Caffeine: yes, tea daily. Living Will: Yes. Alcohol: socially. Sexually active: yes. Travel outside [place]: yes, [place] 2013. Occupation: ui software developer. Lives alone. * Medications: T aking Testosterone 100 MG/ML Suspension as directed Intramuscular , Taking Lasix 20 MG Tablet 1 tab(s) orally once a day , Taking ICaps AREDS Formula - Tablet as directed orally , Taking C-PAP MACHINE , Taking Rosuvastatin Calcium 10 MG Tablet 1 tab(s) orally once a day , Taking Clotrimazole 1 % Cream 1 yuki applied topically 2 times a day , Taking Triamcinolone Acetonide 0.1 % Cream 1 yuki applied topically 3 times a day , Taking Metoprolol Tartrate 50 mg Tablet TAKE 1 TABLET 2 TIMES EACH DAY , Medication List reviewed and reconciled with the patient * Allergies: N .K.D.A. Objective: * Vitals: N urse: dw, Pain: 1, Temp: 98, RR: 18, HR: 74, BP: 126/88, Ht: 6 ft 1 in, Wt: 265, BMI:34.96. * Examination: G eneral Examination: General P leasant and Cooperative, NAD on RA,. Heart: R egular Rate and Rhythm, no murmur, rubs or gallops. Lungs: L CTAB, No wheezes, crackles or rhonchi, Good air movement,. Assessment: * Assessment: 1. T ype 2 diabetes mellitus with other specified complication, without long-term current use of insulin - E11.69 (Primary) 2 . T inea cruris - B35.6 3 . A ndrogen deficiency - E29.1 Plan: * Treatment: 2. T zara robin Start Clotrimazole-Betamethasone Cream, 1-0.05 %, 1 application, Externally, Twice a day, 14 days, 80 Gram, Refills 1. Notes: We discussed applying clotrimazole-betamethasone to the area in his perineum and inguinal where he is experiending the rash. 3. A ndrogen deficiency Refill Testosterone Suspension, 100 MG/ML, 1ml, Intramuscular, weekly, 30 days, 10 Milliliter, Refills 2. Notes: We refilled his prescription for Testosterone suspensions. * Follow Up: 4 Weeks * * Sign off status: Completed true * Provider: Rick Guerra MD Date: 01/26/2025 Generated for Quintini ramon/Nataly/eTransmitting on: 0 03/26/2025 09:30 AM EDT History and Physical Notes * HPI (History of Present Illness) Category Sub-Category Detail Notes Category Not es gen Mr. Mishra presents for a three month f/u. His main concern is weight loss. He recently saw a friend on a semaglutide, and he is interested in starting a semaglutide for weight loss. He has tried diet in the past, but has not seen the results that he did previously. He tried ozempic in the past and saw results but he had a change in his insurance and was unable to receive it. He has been experiencing episodes where he gets dizzy and then has to lay down where he feels as if his heart stops . He does not notice this when he takes his Metoprolol on a regular schedule. He has had an umbilical hernia for the past year. He states that it is tender to palpation. He needs a refill on testosterone injections. He is experiencing a rash in his inguinal areas and his perineum. He states that it itches really bad. He has used medications in the past that have gotten rid of it. Examination Category Sub-Category Detail Notes Category Not es General Examination Heart: Regular Rate and Rhythm, no murmur, rubs or gallops Lungs: LCTAB, No wheezes, c rackles or rhonchi, Good air movement, General Pleasant and Coopera tive, NAD on RA,
--- OUTSIDE RECORDS SUMMARY | 2025-02-23 10:45 | XMS_ITS ---
Author Organization [facility] PE D ERNESTO Address [address] [place] [address] Care Team Providers Care Automotive Customer Experience Advisor Name Role Phone Martin Guerra Primary Care Provider REASON FOR VISIT med ck, Wellness EXam Encounters Encounter Location Date Provider Diagnosis [address] [address] 02/23/2025 Martin Guerra Plan Of Treatment No Information Progress Notes * Ananth MISHRA ADOB:[birth year] (60 yo M)Acc No.[id number]:02/23/2025 Progress Notes Patient: Ananth HINES Provider: Rick Guerra MD :1965 A ge:60 Y S ex:Male Date:02/23/2025 Address:[facility] [place] [id number] Subjective: * Chief Complaints: * 1 . Med ck. 2. Wellness EXam. * Medical History: Objective: * Vitals: Assessment: Plan: * Treatment: * * Electronic signature of Ryan Guerra MD FAAP on 03/26/2025 at 09:30 AM EDT Sign off status: Pending * Provider: Rick Guerra MD Date: 0 02/23/2025 Generated for Printi ng/Faxing/eTransmitting on: 0 03/26/2025 09:30 AM EDT
--- OUTSIDE RECORDS SUMMARY | 2025-03-26 09:31 | XMS_ITS | Patient Health Record ---
Author Organization [facility] Address [address] [place] [address] Care Team Providers Care Cartridge Maker Name Role Phone Martin Guerra Primary Care Provider [phone] June Juan Unavailable [phone] June Santana Unavailable [phone] Migration, Provider Unavailable Unavailable Allergies No Known Allergies Results Component Value Reference Range Notes THYROID PANEL WITH TSH (44 ) Reviewed date:09/16/2024 04:48:46 PM Interpretation: Performing Lab:ERIC [facility] [address], [place] RenovablesZngsKQ[address] Jony Molina Notes/Report: NON-FASTING; NON-FASTING; NON-FASTING; NON-FASTING; NON-FAST FASTING:YES FASTING: YES T3 UPTAKE 32 22-35 % T4 (THYROXINE), TOTAL 7.5 4.9-10.5 mcg/dL FREE T4 INDEX (T7) 2.4 1.4-3.8 TSH 1.40 0.40-4.50 mIU/L LIPID PANEL, STANDARD (1160) Reviewed date:09/16/2024 04:48:46 PM Interpretation: Performing Lab:ERIC [employer] [facility], [place] RenovablesBokxYU[address] Jony Molina Notes/Report: NON-FASTING; NON-FASTING; NON-FASTING; NON-FASTING; NON-FAST FASTING:YES FASTING: YES CHOLESTEROL, TOTAL 149 <200 mg/dL HDL CHOLESTEROL 31 > OR = 40 mg/dL TRIGLYCERIDES 197 <150 mg/dL LDL-CHOLESTEROL 89 Reference range: <100 Desirable range <100 mg/dL for primary prevention; <70 mg/dL for patients with CHD or diabetic patients with > or = 2 CHD risk factors. LDL-C is now calculated using the Ernesto calculation, which is a validated novel method providing better accuracy than the Friedewald equation in the estimation of LDL-C. Juan SS et al. MAYELA. 2013;310(65): 1580-5525 (http://education.[employer].Xiaohongshu/faq/XNP979) CHOL/HDLC RATIO 4.8 <5.0 (calc) NON HDL CHOLESTEROL 118 <130 mg/dL (calc) For patients with diabetes plus 1 major ASCVD risk factor, treating to a non-HDL-C goal of <100 mg/dL (LDL-C of <70 mg/dL) is considered a therapeutic option. COMPREHENSIVE METABOLIC NORIS Henderson (26173) Reviewed date:09/16/2024 04:48:46 PM Interpretation: Performing Lab:ERIC, [facility] [facility], [facility] Onam[facility] HospitalUxxeGK[address] Jony Molina Notes/Report: NON-FASTING; NON-FASTING; NON-FASTING; NON-FASTING; NON-FAST FASTING:YES FASTING: YES GLUCOSE 102 65-99 mg/dL Fasting reference interval For someone without known diabetes, a glucose value between 100 and 125 mg/dL is consistent with prediabetes and should be confirmed with a follow-up test. UREA NITROGEN (BUN) 13 7-25 mg/dL CREATININE 0.81 0.70-1.30 mg/dL EGFR 102 > OR = 60 mL/min/1.73m2 BUN/CREATININE RATIO SEE NOTE: 6-22 (calc) Not Reported: BUN and Creatinine are within reference range. SODIUM 142 135-146 mmol/L POTASSIUM 4.0 3.5-5.3 mmol/L CHLORIDE 103 98-110 mmol/L CARBON DIOXIDE 28 20-32 mmol/L CALCIUM 9.6 8.6-10.3 mg/dL PROTEIN, TOTAL 7.5 6.1-8.1 g/dL ALBUMIN 4.4 3.6-5.1 g/dL GLOBULIN 3.1 1.9-3.7 g/dL (calc) ALBUMIN/GLOBULIN RATIO 1.4 1.0-2.5 (calc) BILIRUBIN, TOTAL 0.8 0.2-1.2 mg/dL ALKALINE PHOSPHATASE 76 35-144 U/L AST 20 10-35 U/L ALT 29 9-46 U/L MAGNESIUM (622) Reviewed date:09/16/2024 04:48:47 PM Interpretation: Performing Lab:ERIC, [facility] [address], [facility] Onam[facility] HospitalEhrnUK[address] Jony Molina Notes/Report: NON-FASTING; NON-FASTING; NON-FASTING; NON-FASTING; NON-FAST FASTING:YES FASTING: YES MAGNESIUM 2.3 1.5-2.5 mg/dL CBC (INCLUDES DIFF/PLT) (639 9) Reviewed date:09/16/2024 04:48:47 PM Interpretation: Performing Lab:EIRC, [facility] [address], [facility] HospitalChbhAZ[address] Jony Molina Notes/Report: NON-FASTING; NON-FASTING; NON-FASTING; NON-FASTING; NON-FAST FASTING:YES FASTING: YES WHITE BLOOD CELL COUNT 5.7 3.8-10.8 Thousand/ uL RED BLOOD CELL COUNT 5.49 4.20-5.80 Million/uL HEMOGLOBIN 16.3 13.2-17.1 g/dL HEMATOCRIT 48.9 38.5-50.0 % MCV 89.1 80.0-100.0 fL MCH 29.7 27.0-33.0 pg MCHC 33.3 32.0-36.0 g/dL For adults, a slight decrease in the calculated MCHC value (in the range of 30 to 32 g/dL) is most likely not clinically significant; however, it should be interpreted with caution in correlation with other red cell parameters and the patient's clinical condition. RDW 13.8 11.0-15.0 % PLATELET COUNT 238 140-400 Thousand/uL MPV 9.9 7.5-12.5 fL ABSOLUTE NEUTROPHILS 2804 7816-9927 cells/uL ABSOLUTE LYMPHOCYTES 3586 198-0828 cells/uL ABSOLUTE MONOCYTES 621 200-950 cells/uL ABSOLUTE EOSINOPHILS 291 15-500 cells/uL ABSOLUTE BASOPHILS 63 0-200 cells/uL NEUTROPHILS 49.2 LYMPHOCYTES 33.7 MONOCYTES 10.9 EOSINOPHILS 5.1 BASOPHILS 1.1 HEMOGLOBIN A1c (496) Reviewed date:09/16/2024 04:48:47 PM Interpretation: Performing Lab:ERIC [facility] [address], [place] ExokFY[address] Jony Molina Notes/Report: NON-FASTING; NON-FASTING; NON-FASTING; NON-FASTING; NON-FAST FASTING:YES FASTING: YES HEMOGLOBIN A1c 6.0 <5.7 % of total Hgb For someone without known diabetes, a hemoglobin A1c value between 5.7% and 6.4% is consistent with prediabetes and should be confirmed with a follow-up test. For someone with known diabetes, a value <7% indicates that their diabetes is well controlled. A1c targets should be individualized based on duration of diabetes, age, comorbid conditions, and other considerations. This assay result is consistent with an increased risk of diabetes. Currently, no consensus exists regarding use of hemoglobin A1c for diagnosis of diabetes for children. Holter Monitor, 48 hour Reviewed date:09/24/2024 11:06:58 AM Interpretation: Performing Lab: Notes/Report: THYROID PANEL WITH TSH (7444 ) Reviewed date:05/27/2024 03:53:28 PM Interpretation: Performing Lab:ERIC [facility] [address], [place]em[place] RenovablesGtpvDL[address] Jony Molina Notes/Report: NON-FASTING; NON-FASTING; NON-FASTING T3 UPTAKE 32 22-35 % T4 (THYROXINE), TOTAL 7.3 4.9-10.5 mcg/dL FREE T4 INDEX (T7) 2.3 1.4-3.8 TSH 1.17 0.40-4.50 mIU/L CBC (INCLUDES DIFF/PLT) (639 9) Reviewed date:05/27/2024 03:53:29 PM Interpretation: Performing Lab:ERIC [facility] [address], Anem[place] RenovablesEvpkWE[address] Jony Molina Notes/Report: NON-FASTING; NON-FASTING; NON-FASTING WHITE BLOOD CELL COUNT 5.1 3.8-10.8 Thousand/ uL RED BLOOD CELL COUNT 5.80 4.20-5.80 Million/uL HEMOGLOBIN 16.9 13.2-17.1 g/dL HEMATOCRIT 51.3 38.5-50.0 % MCV 88.4 80.0-100.0 fL MCH 29.1 27.0-33.0 pg MCHC 32.9 32.0-36.0 g/dL For adults, a slight decrease in the calculated MCHC value (in the range of 30 to 32 g/dL) is most likely not clinically significant; however, it should be interpreted with caution in correlation with other red cell parameters and the patient's clinical condition. RDW 15.0 11.0-15.0 % PLATELET COUNT 249 140-400 Thousand/uL MPV 10.3 7.5-12.5 fL ABSOLUTE NEUTROPHILS 2326 6330-8801 cells/uL ABSOLUTE LYMPHOCYTES 9999 654-1001 cells/uL ABSOLUTE MONOCYTES 699 200-950 cells/uL ABSOLUTE EOSINOPHILS 209 15-500 cells/uL ABSOLUTE BASOPHILS 61 0-200 cells/uL NEUTROPHILS 45.6 LYMPHOCYTES 35.4 MONOCYTES 13.7 EOSINOPHILS 4.1 BASOPHILS 1.2 TESTOSTERONE, TOTAL, MALES ( ADULT), IA (873) Reviewed date:05/27/2024 03:53:29 PM Interpretation: Performing Lab:ERIC, [facility]1355 [facility], [facility] HospitalFvgjHH[address] Jony Molina Notes/Report: NON-FASTING; NON-FASTING; NON-FASTING TESTOSTERONE, TOTAL, MALES (ADULT), IA 61 250-827 ng/dL In hypogonadal males, Testosterone, Total, LC/MS/MS, is the recommended assay due to the diminished accuracy of immunoassay at levels below 250 ng/dL. This test code (24830) must be collected in a red-top tube with no gel. Medications Medication SIG (Take, Route, Frequency, Duration) Notes Start Date End Date Status Testosterone Cypionate 100 MG/ML 1 mL Intramuscular weekly; Duration: 90 days 01/30/2025 Active Triamcinolone Acetonide 0.1 % 1 yuki applied topically 3 times a day; Duration: 7 days 07/03/2024 Active Metoprolol Tartrate 50 mg TAKE 1 TABLET 2 TIMES EACH DAY; Duration: 30 Active Clotrimazole-Betamethasone 1-0.05 % 1 application Externally Twice a day; Duration: 14 days 01/26/2025 Active Ozempic (0.25 or 0.5 MG/DOSE) 2 MG/3ML 0.25 mg once a week for 4 weeks and then 0.5 mg weekly Subcutaneous once a week; Duration: 28 days 02/05/2025 Active Lasix 20 MG 1 tab(s) orally once a day Active Rosuvastatin Calcium 10 MG 1 tab(s) oral ly once a day; Duration: 90 days 02/27/2024 Active Clotrimazole 1 % 1 yuki applied topica lly 2 times a day; Duration: 7 days 07/03/2024 Active ICaps AREDS Formula - as directed orally ; Duration: 30 day(s) Active C-PAP MACHINE Active Immunizations Vaccine Route Administration Date Status Comme nts Boostrix IM Intramuscular 11/16/2019 Administered FLUZONE 6MO - OLDER IM Intramuscular 04/21/2019 Administer ed FLUZONE 6MO - OLDER IM Intramuscular 05/26/2024 Administer ed SHINGRIX IM Intramuscular 05/26/2024 Administered SHINGRIX IM Intramuscular 09/17/2024 Administered Problems Problem Type SNOMED Code ICD Code Onset Dates Problem Status W/U Status Risk Notes Problem Type 2 diabetes mellitus with other specified complication (E11.69) Active confirmed Problem Generalized anxiety disorder (43964166) Generalized anxiety disorder (F41.1) Active confirmed Problem Onychomycosis (192781632) Onychomycosis (B35.1) Active confirmed Problem Essential hypertension (04043089) Essential hypertension (I10) Active confirmed Problem Hyperlipidemia (06678993) Hyperlipemia, idiopathic familial (E78.5) Active confirmed Problem Idiopathic peripheral neuropathy (95781924) Idiopathic peripheral neuropathy (G60.9) Active confirmed Problem Carpal tunnel syndrome (13702086) Carpal tunnel syndrome (G56.00) Active confirmed Problem Androgen deficiency (66442267) Androgen deficiency (E29.1) Active confirmed Problem Obesity (946301349) Obesity, unspecified (E66.9) Active confirmed Problem BMI 30+ - obesity (853589068) BMI 32.0-32.9,adult (Z68.32) Active confirmed Problem Fatty liver (398654243) Fatty liver (K76.0) Active confirmed Problem Obstructive sleep apnea syndrome (37239911) LISA (obstructive sleep apnea) (G47.33) Active confirmed Problem Liver cyst (75331596) Liver cyst (K76.89) Active confirmed Problem Meralgia paresthetica (64596325) Meralgia paresthetica of left side (G57.12) Active confirmed Problem Lipoma (03457323) Lipoma (D17.9) Active confirm ed Problem Vitamin B>12< deficiency anaemia (04975502) Vitamin B12 deficiency (dietary) anemia (D51.8) Active confirmed Problem Tension-type headache (270835545) Acute non intractable tension-type headache (G44.209) Active confirmed Problem Cardiac arrhythmia (498525172) Cardiac arrhythmia, unspecified cardiac arrhythmia type (I49.9) Active confirmed Problem Hyperlipidemia (81322100) Other hyperlipidemia (E78.49) Active confirmed Problem Type 2 diabetes mellitus with other specified complication, without long-term current use of insulin (E11.69) Active confirmed Vital Signs Heart Rate 74 /min 01/26/2025 Temperature 98 degrees Fahrenheit 01/26/2025 Blood pressure diastolic 88 mm Hg 01/26/2025 Height 6 ft 1 in in 01/26/2025 Blood pressure systolic 126 mm Hg 01/26/2025 Weight 265 lbs 01/26/2025 BMI 34.96 kg/m2 01/26/2025 Encounters Encounter Location Date Provider Diagnosis [facility] [address] [place] [address] 10/03/2024 Provider Migration Palpitations R00.[address] [address] 05/26/2024 Martin Guerra Jock itch B35.6 ; Other hyperlipidemia E78.49 ; Atypical mole D22.9 ; LISA (obstructive sleep apnea) G47.33 ; Testosterone deficiency E34.9 ; Healthcare maintenance Z00.00 and Encounter for immunization Z23 [address] [address] 06/04/2024 Martin Guerra Androgen deficiency E29.1 ; Vitamin B12 deficiency (dietary) anemia D51.8 and Abnormal thyroid blood test R79.[address] [address] 07/03/2024 June Santana Pruritic rash L28.[address] [address] 09/15/2024 Martin Guerra Type 2 diabetes mellitus with other specified complication E11.69 ; Palpitations R00.2 and Hyperlipemia, idiopathic familial E78.5 [facility] [address] [address] 09/17/2024 Martin Guerra Encounter for immunization Z23 [address] [address] 01/26/2025 Martin Guerra Type 2 diabetes mellitus with other specified complication, without long-term current use of insulin E11.69 ; Tinea cruris B35.6 and Androgen deficiency E29.[address] [address] 01/29/2025 Martin Guerra Androgen deficiency E29.[address] [address] 02/05/2025 June Juan Type 2 diabetes mellitus with other specified complication, without long-term current use of insulin E11.69 Assessments Encounter Date Diagnosis (ICD Code) Assessment Notes Treatment Notes Treatment Clinical Notes Section Notes 05/26/2024 Jock itch (ICD-10 - B35.6) -Likely jock itch as rash is typically associated with heat and moist conditions -Counseled patient on wearing 100% cotton underwear as well as loose clothing. Keep good hygiene and change undergarments during the day if needed. - reports rash continues to come and go but improves when using ointments - instructed to continue lotrisone ointment twice daily to area when rash occurs, and encouraged good hygiene habits 05/26/2024 Other hyperlipidemia (ICD-10 - E78.49) - started rosuvastatin 10 mg daily in 11/2023 tolerating well, denies side effects, but is taking maybe everyother day due to forgetting - brought outside lab work, LDL went from 123 to 108 - will obtain repeat lipid panel at next follow up 06/04/2024 Androgen deficiency (ICD-10 - E29.1) Testosterone level 61. Has multiple symptoms related androgen deficiency. Restart intramuscular injections every 2 weeks as noted on prescription. Follow-up in August will redo labs at that point, monitor blood counts and response to therapy. 06/04/2024 Vitamin B12 deficiency (dietary) anemia (ICD-10 - D51.8) Overall improving 07/03/2024 Pruritic rash (ICD-10 - L28.2) Patient states it feels like and looks like his jock itch rash. Have prescribed clotrimazole topical and can use sparingly topical triamcinolone for his itching symptoms. Also discussed taking Pretty once daily x 1 month. Expect rash to be improving with treatment within 5 days. No active sign of secondary infection, but discussed if he develops discharge he should return to clinic. If no improvement or worsening, then patient should return to clinic. Patient voices understanding and agrees with the plan of care above. 09/15/2024 Type 2 diabetes mellitus with other specified complication (ICD-10 - E11.69) 09/15/2024 Palpitations (ICD-10 - R00.2) Will switch metoprolol to succinate to tartrate 50 twice daily for hopefully better palpitation control. Short-term follow-up scheduled. Ordered a Holter monitor and labs. Please note I will review all these personally including the Holter monitor 09/17/2024 Encounter for immunization (ICD-10 - Z23) 10/03/2024 Palpitations (ICD-10 - R00.2) 01/26/2025 Tinea cruris (ICD-10 - B35.6) We discussed applying clotrimazole-beta methasone to the area in his perineum and inguinal where he is experiending the rash. 01/26/2025 Type 2 diabetes mellitus with other specified complication, without long-term current use of insulin (ICD-10 - E11.69) We discussed retrying Ozempic and refilled his prescription. We will f/u in four weeks to assess if he is having any side effects from the medication. 01/29/2025 Androgen deficiency (ICD-10 - E29.1) 02/05/2025 Type 2 diabetes mellitus with other specified complication, without long-term current use of insulin (ICD-10 - E11.69) 01/26/2025 Androgen deficiency (ICD-10 - E29.1) We refilled his prescription for Testosterone suspensions. 09/15/2024 Hyperlipemia, idiopathic familial (ICD-10 - E78.5) 06/04/2024 Abnormal thyroid blood test (ICD-10 - R79.89) Repeat thyroid blood test are completely normal. No changes in plan at this point. Gave copy of labs to patient and reassured him 05/26/2024 Atypical mole (ICD-10 - D22.9) - mole removed at prior visit, healing well - tissue pathology was keratin debris - is following with Dermatology with upcoming appointment 05/26/2024 LISA (obstructive sleep apnea) (ICD-10 - G47.33) - is compliant with home nightly CPAP - chronic, well controlled - is going to [employer] store to obtain new CPAP mask that fits better 05/26/2024 Testosterone deficiency (ICD-10 - E34.9) - had been taking testosterone injections for Low T - has been out for 2 months, endorses increased fatigue and low libido - will obtain repeat testosterone level today along with CBC to check Hgb and Hct levels prior to restarting therapy 05/26/2024 Healthcare maintenance (ICD-10 - Z00.00) - due for flu and shingles, completing today - due for colonoscopy, ordering this to complete prior to next follow up 05/26/2024 Encounter for immunization (ICD-10 - Z23) - influenza vaccination today, tolerated well with no immediate complications - 1st dose shingrex vaccination today, tolerated well with no immediate complications Plan Of Treatment Pending Test Test Name Order Date NVC STUDY OF UPPER EXTREMITIES 0 CT Scan : Abdomen and Pelvis with contra st 07/14/2018 H-VITAMIN B12 03/15/2015 H-CMP 03/15/2015 H-LIPID PANEL 03/15/2015 H-LIPID PANEL 01/26/2011 H-PSA SCREEN 03/15/2015 H-TSH 03/15/2015 H-VIT D, 25-HYDROXY 03/15/2015 C-CBC 07/14/2018 C-CBC 05/16/2017 C-CBC 09/07/2019 C-CMP 09/07/2019 C-CMP 05/16/2017 C-CMP 07/14/2018 C-LIPID PANEL 05/16/2017 C-TSH 05/16/2017 C-VITAMIN B12 05/16/2017 C-HGBA1C 09/07/2019 CT Scan : Liver 10/16/2021 NVC/EMG STUDY OF LOWER EXTREMITIES 09/14 H-TESTOSTERONE 03/15/2015 M-Complete Blood Count Auto Diff 019 M-Comprehensive Metabolic Panel 12/25/19 19 M-Lipid Panel 12/24/2018 M-Free T4 (Free Thyroxine) 12/24/2018 M-Thyroid Stimulating Hormone 12/24/2018 M-Vitamin B12 12/24/2018 M-Vitamin B12 03/27/2021 M-Vitamin B12 02/13/2019 M-Testosterone 02/26/2019 M-Testosterone 02/13/2019 M-Testosterone 12/24/2018 Future Test Test Name Order Date H-CBC with AUTO DIFF 03/12/2016 H-VITAMIN B12 03/12/2016 H-CMP 03/12/2016 H-LIPID PANEL 03/12/2016 H-TSH 03/12/2016 H-TESTOSTERONE 03/12/2016 Insurance Providers Payer Name Payer Address Payer Phone Subscriber Number Group Number Insured Name Patient Relationship to Insured Coverage Start Date Coverage End Date [employer] [place] [employer] [address] [address] [place] [address] [phone] [id number] Ananth Jackson Self - patient is the insured Medications Administered Medication Instructions Date of Administration Dosage Notes Ceftriaxone 500 10/30/2013 1000 mg Ceftriaxone 500 03/02/2014 500 Ceftriaxone 500 03/09/2016 250 mg Dexamethasone 4mg Injection 10/13/2021 4 mg Triamcinolone Acetonide 40mg Injection 12/24/2018 1 mL Kenalog 10/08/2012 1 Kenalog 10/30/2013 2 Kenalog 03/02/2014 1 Kenalog 03/08/2015 1 mL Kenalog 03/09/2016 1 mL Medical (General) History Medical History History ICD Code Anxiety with depression hypogonadism, testiucular rhinitis Sleep Apnea - uses CPAP @ [facility] Gynecomastia 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
--- OUTSIDE RECORDS SUMMARY | 2025-03-26 09:31 | XMS_ITS | Clinical Summary ---
[facility] Address [address] [place] [address] Care Team Providers Care Acute Care Nursing Assistant Name Role Phone Robi Salcedo MD Primary Care Provider [phone] Allergies No known active allergies Medications Multiple [...] Daily. 4 Active neomycin-polymy timmy-dexamethame thasone (POLYDEX) 3.5-57795-7.1 ointment ophthalmic ointment Apply 1 cm strip [...] currently asymptomatic Ventricular tachycardia 10/08/2018 Overview (10/09/2018): [place] ER presentation with near syncope and NS [...] EXAM 1975 DIABETIC FOOT EXAM 1975 URINE MICROALBUMIN-CREATININE RATIO (uACR) 1975 Pneumococcal Vaccine 50+ (1 of 2 - PCV) 01/15/1984 COLOGUARD 2010 COLON CANCER SCREENING 5 YEA R SIGMOIDOSCOPY 2010 COLONOSCOPY 2010 [address]AL CANCER SCREENING 2010 CT COLONOGRAPHY 2010 FECAL OCCULT BLOOD TEST 2010 FIT Testing (1 year) 2010 ZOSTER VACCINE (1 of 2) 2015 ANNUAL PHYSICAL 10/08/2018 HEMOGLOBIN A1C 10/08/2018 HEPATITIS C SCREENING 10/08/2018 INFLUENZA VACCINE 01/29/2025 03/25/2021, 04/21/2019 TDAP/TD VACCINES (2 - Td or Tdap) 11/15/2029 020 Medical Devices Implanted Type Area Compensation/Benefits Specialist Device Identifier Shelf Expiration Date Model / Serial / Lot Icm Confirm Rx 1.4cc [id number] - [id number] - [id number] Implanted:Qty: 1 on 10/09/2018 by Efrain Avina MD at [facility] 10/21/2019 [id number] / [id number] / Insurance [facility] PPO Advance Directives * CPR (Attempt to Resuscitate) (Latest Code Status on File) Date Activated Date Inactivated Comments 10/09/2018 9:17 AM 10/09/2018 9:26 PM Question Answer Comments Code Status (Patient has no pulse and is not breathing): CPR (Attempt to Resuscitate) Medical Interventions (Patie nt has pulse or is breathing): Full Care Teams Acute Care Nursing Assistant Relationship Specialty Start Date End Date Robi Salcedo MD [address] [place] [id number] PCP - General Family Medicine 10/14/23
--- NOTE | 2025-03-26 09:45 | CA_ITS ---
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 2D Dimensions IVSd 1.74 cm LVEF (Visual) 61.40 % PWd 1.05 cm LA Volume 60.40 mL LVDd 4.74 cm LA Volume Index 25.10 mL/m2 (M/F) 16-34 LVDs 3.18 cm EF AP4 53.60 % Aortic Root 2.89 cm GL Strain -22.9 % Left Atrium 4.76 cm RVID Base (AP4) 3.05 cm (M/F) 2.5-4.1 LVOT 2.01 cm (M/F) 1.5-2.5 M-Mode Dimensions LVDd 4.74 cm (3.5-5.7) Ao Diam 3.74 cm (2.0-3.7) LVDs 3.77 cm (3.5-5.7) IVSd 1.74 cm (0.6-1.1) PWd 1.05 cm (0.6-1.1) EF (Teich) 57.30% EPSs 0.53 cm FS 31.23% EDV (Teich) 142.50 mL TAPSE 2.06 (<1.7) ESV (Teich) 60.80 mL LV Diastology E Decel Time 242 (160-240 msec) E/A Ratio 0.87 MED E' 5.6 (>= 7 cm/sec) MED A' 10.00 cm/s E'/MED E' Ratio 11.55 (<= 14) LAT E' 7.3 (>= 10 cm/sec) LAT A' 12.90 cm/s E/LAT E' Ratio 8.86 (<= 14) Aortic Valve LVOT Max 97.0 (70-110 cm/s) ADRIENNE Index 1.27 cm2/m2 LVOT VTI 20.64 cm AoV Peak Norris. 108.0 (50-130 cm/s) AO Mean GR. 2.40 (<5 mmHg) AO VTI 21.4 (18-25 cm) ADRIENNE (VTI) 3.06 (2.5-4.5 cm2) Mitral Valve MV E Max Norris. 65.0 (40-130 cm/s) MV A Velocity 75.0 (40-130 cm/s) E/A Ratio 0.87 MV Decel. Time 242 (160-240 ms) Pulmonary Valve CT End VMAX 91.0 cm/s Tricuspid Valve TR P. Velocity 199.00 cm/s RAP Estimate 10.00 mmHg RVSP 25.90 mmHg Left Ventricle The left ventricle is normal size. Left ventricular systolic function is normal. The left ventricular ejection fraction is within the normal range. There is increased left ventricular wall thickness. Proximal septal thickening is present. There is normal LV segmental wall motion. The left ventricular diastolic function is indeterminate. LVEF is 55% Right Ventricle The right ventricle is mildly dilated. The right ventricular systolic function is normal. Atria The left atrium is mildly dilated. The right atrium is mildly dilated. There is no color Doppler evidence of interatrial shunt. Aortic Valve The aortic valve is mildly thickened. There is no hemodynamically significant aortic valvular stenosis. Trace aortic regurgitation is present. Mitral Valve The mitral valve is normal in structure. No evidence of mitral valve stenosis. Trace mitral regurgitation is present. Tricuspid Valve The tricuspid valve leaflets are thin and pliable. Mild tricuspid regurgitation. RVSP is 20-25 mmHg. Pulmonic Valve The pulmonary valve is grossly normal in structure. Mild pulmonic valve regurgitation is present. Great Vessels The aortic root is normal in size. IVC is normal in size and collapses >50% with inspiration. Pericardium There is no pericardial effusion. Other Information Study Quality: Fair Conclusion Normal biventricular systolic function. Mild RV dilation. Mild biatrial dilation. Mild TR, mild PI. RVSP 20-25 mmHg. Electronically signed by : Cassy Law MD 03/29/2025 12:50:10
== END 2025-03-26 23:59 | disposition home or self-care (01) ==
LOC: RT 09:22
PROVIDERS: PCP Family Medicine; Visit Provider Physician Assistant
DX: I08.8 Other rheumatic multiple valve diseases (principal); I47.29 Other ventricular tachycardia; G47.33 Obstructive sleep apnea (adult) (pediatric); Q25.72 Congenital pulmonary arteriovenous malformation; Q24.5 Malformation of coronary vessels
CPT/HCPCS: 93306

== ENCOUNTER 2025-04-28 07:58 | Outpatient (CLI) | payer MEDICAID, SELFPAY ==
--- OUTSIDE RECORDS SUMMARY | 2024-06-09 06:30 | XMS_ITS ---
Author Organization [facility] Address [address] [place] [address] Care Team Providers Care Cooker Operator Name Role Phone Martin Guerra Primary Care Provider REASON FOR VISIT DISCUSS LABS Encounters Encounter Location Date Provider Diagnosis [facility] [address] [address] 06/09/2024 Martin Guerra Plan Of Treatment No Information Progress Notes * Ananth MISHRA ADOB:[birth year] (60 yo M)Acc No.[id number]:06/09/2024 Progress Notes Patient: Ananth HINES Provider: Rick Guerra MD :1965 A ge:59 Y S ex:Male Date:06/09/2024 Address:[facility] [address] [id number] Subjective: * Chief Complaints: * 1 . DISCUSS LABS. * Medical History: Objective: * Vitals: Assessment: Plan: * Treatment: * * Electronic signature of Ryan Guerra MD FAAP on 04/28/2025 at 08:02 AM EDT Sign off status: Pending * Provider: Rick Guerra MD Date: 08/10/2023 Generated for Printi ng/Faxing/eTransmitting on: 08:02 AM EDT
--- OUTSIDE RECORDS SUMMARY | 2024-10-03 17:30 | XMS_ITS ---
Author Organization [facility] Address [address] [place] [address] Care Team Providers Care Weapons Officer Name Role Phone Martin Guerra Primary Care Provider Migration, Provider Unavailable Unavailable REASON FOR VISIT [facility] Conversion Encounter Medications Medication SIG (Take, [address] [place] [address] 10/03/2024 Provider Migration Palpitations R00.2 Assessments Encounter Date Diagnosis (ICD Code) Assessment Notes Treatment Notes Treatment Clinical Notes Section Notes 10/03/2024 Palpitations (ICD-10 - R00.2) Plan Of Treatment Medication Medication Name Sig Start Date Stop Date Notes Metoprolol Tartrate 50 MG 1 tab(s) orall y 2 times a day; Duration: 30 days 09/15/2024 Progress Notes * Ananth MISHRA ADOB:[birth year] (60 yo M)Acc No.[id number]:10/03/2024 Patient: Ananth HINES Provider: Raisa wood Migration :1965 A ge:59 Y S ex:Male Date:10/03/2024 Address:[address] [place] [address] [place], [id number] Pcp:Martin Guerra Subjective: * Chief Complaints: * [...] Electronic signature of Prov ider Migration on 04/28/2025 at 08:01 AM EDT Sign off status: Pending * Provider: Raisa Coleman Date: 0 10/03/2024 Generated for Guillermina navarro/Nataly/Ruddyitting on: 1 08:01 AM EDT
--- OUTSIDE RECORDS SUMMARY | 2025-02-23 10:45 | XMS_ITS ---
Author Organization [facility] PE D ERNESTO Address [address] [place] [address] Care Team Providers Care Onsite Case Manager Name Role Phone Martin Guerra Primary Care Provider REASON FOR VISIT med ck, Wellness EXam Encounters Encounter Location Date Provider Diagnosis [address] [address] 02/23/2025 Martin Guerra Plan Of Treatment No Information Progress Notes * Ananth MISHRA ADOB:[birth year] (60 yo M)Acc No.[id number]:02/23/2025 Progress Notes Patient: Ananth HINES Provider: Rick Guerra MD :1965 A ge:60 Y S ex:Male Date:02/23/2025 Address:[facility] [place] [id number] Subjective: * Chief Complaints: * 1 . Med ck. 2. Wellness EXam. * Medical History: Objective: * Vitals: Assessment: Plan: * Treatment: * * Electronic signature of Ryan Guerra MD FAAP on 04/28/2025 at 08:01 AM EDT Sign off status: Pending * Provider: Rick Guerra MD Date: 0 02/23/2025 Generated for Printi ng/Faxing/eTransmitting on: 1 08:01 AM EDT
--- NOTE | 2025-04-28 | CA_ITS ---
APPROVED REPORT Exam: Exercise Treadmill Technologist: Kamille Hicks Stress Nurse: Nadine MARK, RN Ht: 6 ft 1 in Wt: 261 lbs BSA: 2.41 m2 HR: 73 bpm BP: 136/87 mmHg Indications: Chest pain, Shortness of Breath, Coronary Artery Disease, Abnormal ECG Stress Test Details Test: Exercise stress testing was performed using a Jorge protocol. HR Resting HR: 73 bpm Max Heart Rate (APMHR): 160.565499 bpm Max HR Achieved: 155 bpm Target HR (85% APMHR): 136.616279 bpm % of APMHR: 96.88 Recovery HR: 96 bpm BP Resting BP: 136.0/87.0 mmHg Max BP: 180.0/92.0 mmHg Recovery BP: 146.0/98.0 mmHg ECG Resting ECG: Sinus rhythm Stress ECG Conclusion Lungs clear to auscultation prior to test start. Patient requested to stop test due to leg pain. Symptoms: Leg pain Arrhythmias/Ectopy: None ST-T Changes: 1 mm flattening/downsloping ST segment depression. Conclusion: Abnormal ECG tracing. Electronically signed by : Cassy Law MD 05/02/2025 16:15:39
--- NOTE | 2025-04-28 08:00 | NM_ITS ---
APPROVED REPORT Exam: Nuclear Stress Test Indication: Chest pain, SOB, HTN, High cholesterol, Family history Patient Location: Outpatient Stress Tech: Kamille Hicks [place] Tech:Eva Graves, ARRT, RT (R)(N) Ht: 6 ft 1 in Wt: 258 lbs HR: 67 bpm BP: 136/87 mmHg BSA: 2.40 m2 TID: 1.07 BMI: 34.0 History: Chest pain, SOB, HTN, High cholesterol, Family history Procedure: Patient exercised on Jorge protocol 6:45 minutes and sec, resting heart rate 67 bpm, resting blood pressure 136/87 mmHg, with exercise maximum heart rate achived was 155 bpm which is 96 % of the maximum predicted heart rate and blood pressure was 180/92 mmHg. Test was stopped due to SOB. Patient has average exercise capacity, achieved 10.3 METs of workload on treadmill, the blood pressure response to exercise was normal. Cardiac Stress and Resting SPECT Images: Cardiac Stress and Resting SPECT images were obtained using technetium 99m Myoview 32.7 mCi stress and 10.61 mCi at rest. Resting and stress imaging in supine and prone positions demonstrate a medium-sized, moderate, reversible perfusion defect in the basal to mid inferior LV wall. Gated imaging demonstrates normal global LV systolic function. LVEF is calculated at 57%. Conclusion: Medium-sized, moderate, reversible perfusion defect in the basal to mid inferior LV wall. Findings are suggestive of reversible ischemia. Gated imaging demonstrates normal global LV systolic function. LVEF is calculated at 57%. Electronically signed by : Cassy Law MD 04/29/2025 13:10:07
--- OUTSIDE RECORDS SUMMARY | 2025-04-28 08:01 | XMS_ITS | Continuity of Care Document ---
Author Organization [facility], [facility] Address [address] [place] [address] Assessment No assessment recorded. Plan of Treatment Reminders Order Date Submit Date Provider Last Modified By Organization Details Last Modified Time Details Appointments None recorded. Lab None recorded. Referral None recorded. Procedures cryosurgery (PROC) 2024 025 [email or web address] Not available 17:05:40 Surgeries None recorded. Imaging None recorded. Medication Orders None recorded. Patient TargetsNo targets recorded. Patient Instructions Encounter Date Encounter Id Patient Instructions Last Modified By Organization Details Last Modified Time 03/16/2025 [id number] May experience redness, tenderness, swelling or blistering where cryo was applied. If you have any questions or concerns, call pp or seek medical attention. [email or web address] Not available 03/16/2025 17:06:07 Reason for Referral None Reported. Procedures Surgical History Date Name Laterality Status Provider Name and Address Organization Details Recorded Time Cryosurgery Dermatology completed Cyn Fisher APRN [address], [place], [address], [facility] 03/16/2025 17:05:19 Imaging Results None recorded. Procedure Notes None recorded. Medical Equipment None Reported. Allergies No known drug allergies Medications Name Sig Start Date Stop Date Status Note LastModified by Organization Details LastModified Time prednisone 10 mg tablet TAKE ACCORDIN G TO ATTACHED INSTRUCT IONS active Not Available Not Available No t Available prednisone 20 mg tablet TAKE 2 AND 1/2 TABLETS 1 TIME EACH DAY FOR 7 DAYS 03/16 completed Is taking 10mg Not Available Not Available Not Available testostero ne cypionate 100 mg/mL intramuscu lar oil INJECT 1 ML INTO A MUSCLE 1 TIME EACH WEEK active Not Available Not Available No t Available betamethas one, augmented 0.05 % topical cream APPLY A THIN FILM TO THE AFFECTED AREA OF SKIN 2 TIMES EACH DAY 03/16 completed Not Available Not Available Not Available triamcinol one acetonide 0.1 % topical cream APPLY A THIN FILM TO THE AFFECTED AREA OF SKIN 3 TIMES EACH DAY NEEDED FOR ITCHING FOR 7 DAYS 03/16 completed Not Available Not Available Not Available cephalexin 500 mg capsule TAKE 1 CAPSULE 1 TIME EACH DAY 4 TIMES EACH DAY FOR 10 DAYS 03/16 completed Not Available Not Available Not Available clotrimazo le-betamet hasone 1 %-0.05 % topical cream APPLY A THIN FILM TO THE AFFECTED AREA OF SKIN 2 TIMES EACH DAY 03/16 completed Not Available Not Available Not Available metoprolol tartrate 50 mg tablet TAKE 1 TABLET 2 TIMES EACH DAY active Not Available Not Available No t Available mupirocin 2 % topical ointment APPLY A THIN FILM TO THE AFFECTED AREA OF SKIN 3 TIMES EACH DAY FOR 10 DAYS 03/16 completed Not Available Not Available Not Available furosemide 20 mg tablet TAKE 1 TABLET 1 TIME EACH DAY active Not Available Not Available No t Available metoprolol succinate ER 25 mg tablet,ext ended release 24 hr TAKE 2 TABLETS 1 TIME EACH DAY 03/16 completed Not Available Not Available Not Available testostero ne cypionate 200 mg/mL intramuscu lar oil INJECT 1 ML INTO A MUSCLE EVERY 2 WEEKS 03/16 completed Takes 100mg Not Available Not Available Not Available clotrimazo le 1 % topical cream APPLY A THIN FILM TO THE AFFECTED AREA OF SKIN 2 TIMES EACH DAY FOR 7 DAYS 03/16 completed Not Available Not Available Not Available rosuvastat in 10 mg tablet TAKE 1 TABLET 1 TIME EACH DAY active Not Available Not Available No t Available Allergy Relief (fexofenad ine) 180 mg tablet TAKE 1 TABLET 1 TIME EACH DAY active Not Available Not Available No t Available Ozempic 2 mg/dose (8 mg/3 mL) subcutaneo us pen injector INJECT .25MG UNDER THE SKIN 1 TIME EACH WEEK 03/16 completed Not Available Not Available Not Available Vitals Date Recorded Body weight Body mass index (BMI) Body height Body temperature Oxygen saturation Oxygen saturation in Arterial blood by Pulse oximetry Respiratory rate Pain severity - 0-10 verbal numeric rating [Score] - Reported Heart rate Systolic And Diastolic Provider Name and Address Organization Details Last Updated DateTime 390611. 01 g 34.5 kg/m2 185.42 cm 98 [degF] 98 % 98 % 18 /min 0 72 /min 126/76 mm[Hg] Eva Franks [place] - [facility] 16:38:26 Social History Question Answer Notes LastModified by Organizat ion Details LastModified Time Tobacco Smoking Status Never Smoker Eva russ, [place] - [facility] 03/16/2025 16:33:20 Do You Have An Advance Directive? No Information n ot available 03/16/2025 Are You Blind Or Do You Have Difficulty Seeing? No Information n ot available 03/16/2025 What Is Your Level Of Caffeine Consumption? None Information not available 03/16/2025 In The 14 Days Before Symptom Onset, Have You Had Close Contact With A Laboratory-confirm ed COVID-19 While That Case Was Ill? No Information n ot available 03/16/2025 In The 14 Days Before Symptom Onset, Have You Had Close Contact With A Person Who Is Under Investigation For COVID-19 While That Person Was Ill? No Information not available 03/16/2025 Have You Been To An Area Known To Be High Risk For COVID-19? No Information not available 03/16/2025 Are You Deaf Or Do You Have Serious Difficulty Hearing? No Information not available 03/16/2025 What Type Of Diet Are You Following? REGULAR Information n ot available 03/16/2025 Have You Processed Blood Or Body Fluids From An Ebola Virus Disease Patient Without Appropriate PPE? No Information not available 03/16/2025 Do You Reside In Or Have You Traveled To An Area Where Ebola Virus Transmission Is Active? No Information not available 03/16/2025 What Is The Highest Grade Or Level Of School You Have Completed Or The Highest Degree You Have Received? [id number] Information not available 03/16/2025 Have There Been Any Changes To Your Family Or Social Situation? No Information no t available 03/16/2025 Have You Recently Or Are You Planning To Travel To An Area With Zika Virus? No Information not available 03/16/2025 Do You Have A Medical Power Of Tripe Finisher? No Information not available 03/16/2025 What Was The Date Of Your Most Recent Tobacco Screening? 03/16/2025 Information not available 03/16/2025 What Is Your Relationship Status? Single Information not available 03/16/2025 Are You Sexually Active? No Information not available 03/16/2025 Do You Have Smoke And Carbon Monoxide Detectors In Your Home? Yes Information not available 03/16/2025 Are You Passively Exposed To Smoke? No Information no t available 03/16/2025 Has Tobacco Cessation Counseling Been Provided? No Information not available 03/16/2025 Do You Have Difficulty Walking Or Climbing Stairs? No Information not available 03/16/2025 Sex: Male Functional Status Question Answer Note LastModified by [employer] ion Details LastModified Time How many times per week do you consume alcohol? Less than 1 time per week Information not available 03/16/2025 Do you use any illicit or recreational drugs? No Information not available 03/16/2025 Do you or have you ever used any other forms of tobacco or nicotine? No Information not available 03/16/2025 What is your level of alcohol consumption? Occasional Information not available 03/16/2025 Are you currently employed? Yes Information not available 03/16/2025 Do you have transportation difficulties? No Information not available 03/16/2025 Are you able to walk independently without assistance or assistive devices? YESWOREST Information not available 03/16/2025 Do you have difficulty doing errands alone? No Information not available 03/16/2025 Are you able to care for yourself independently? Yes Information not available 03/16/2025 Do you have difficulty dressing, bathing, grooming, or toileting? No Information not available 03/16/2025 Mental Status Question Answer Note LastModified by Organizat ion Details LastModified Time Do you feel stressed (tense, restless, nervous, or anxious, or unable to sleep at night)? [id number] Information not available 03/16/2025 Do you have difficulty concentrating, remembering or making decisions? No Information no t available 03/16/2025 Family History Nothing Reported. Medical History No medical history recorded. Past Encounters Encounter ID Performer Location Encounter Start Date Encounter Closed Date Diagnosis/Indication Diagnosis SNOMED-CT Code Diagnosis ICD10 Code Diagnosis IMO Codes Diagnosis Note [id number] Cyn Fisher APRN [facility] [address] [place] [address] 03/16/2025 16:15:41 03/16/2025 17:09:22 Family history of malignant melanoma 086168918 Z80.8 117610 Father Body mass index 30+ - obesity 440195041 Z68.34 21782543 Seborrheic keratosis 394 903382 L82.1 092249 Senile angioma 3003026 D 18.01 808783 Health Concerns Section Related Observation LastModified by Organization Detai ls LastModified Time None Recorded Concern Status LastModified by Organization Details LastModified Time None Recorded Payers Encounter Date Sequence Insurance Name Policy Number Policy Mazariegos Covered Member ID Mazariegos Member ID Guarantor Name 03/16/2025 1 [facility] (MEDICAID HMO) Ananth Jackson [id number] Ananth Jackson Notes Date Note Type Note Provider Name and Address Organization Details Recorded Time 03/16/2025 text/html ROS as noted in the HPI Ananth presents today as a new patient to dermatology for a full body skin exam. States last Saturday he was working in his yard and now has a rash to his bilateral legsHas tried Calamine lotion and anti-itch cream. Says rash finally stopped itching last night.Was seen by PCP yesterday and was given an Steroid injection and Prednisone 10mg. PCP is Dr. Robi Salcedo in [facility]. 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 Has not been seen by dermatology for the past 2-3 years. His dad has a history of melanoma. Cyn Fisher, PHOTOGRAPHIC PROCESS WORKER [address], [place], [address], [place] - [facility] 03/16/2025 17:08:18
--- OUTSIDE RECORDS SUMMARY | 2025-04-28 08:02 | XMS_ITS | Data Portability ---
Author Organization [facility] Address [address] [place] [address] Assessment No assessment recorded. Plan of Treatment [...] By Organization Details Last Modified Time 03/16/2025 [id number] May experience redness, tenderness, swelling or blistering where cryo was applied. If you have any questions or concerns, call pp or seek medical attention. [email or web address] Not available 03/16/2025 17:06:07 Reason for Referral None Reported. Procedures Surgical History Date Name Laterality Status Provider Name and Address Organization Details Recorded Time Cryosurgery Dermatology completed Cyn Fisher APRN [address], [place], [address], [facility] 03/16/2025 17:05:19 Imaging Results None recorded. Procedure [...] and Address Organization Details Last Updated DateTime 858302. 01 g 34.5 kg/m2 185.42 cm 98 [...] Or The Highest Degree You Have Received? AR80524-0 Information not available 03/16/2025 Have There Been Any Changes To Your Family Or Social Situation? No Information no t available 03/16/2025 Have You Recently Or Are You Planning To Travel To An Area With Zika Virus? No Information not available 03/16/2025 Do You Have A Medical Power Of Senior Javascript Developer? No Information not available 03/16/2025 What Was [...] Functional Status Question Answer Note LastModified by [employer] Details LastModified Time How many times per [...] anxious, or unable to sleep at night)? [id number] Information not available 03/16/2025 Do you have difficulty concentrating, remembering or making decisions? No Information no t available 03/16/2025 Family History Nothing Reported. Medical History No medical history recorded. Past Encounters Encounter ID Performer Location Encounter Start Date Encounter Closed Date Diagnosis/Indication Diagnosis SNOMED-CT Code Diagnosis ICD10 Code Diagnosis IMO Codes Diagnosis Note [id number] Cyn Fisher APRN [facility] [address] [place] [address] 03/16/2025 16:15:41 03/16/2025 17:09:22 Family history of malignant melanoma 394993839 Z80.8 078379 Father Body mass index 30+ - obesity 703698191 Z68.34 24432820 Seborrheic keratosis 394 156484 L82.1 916124 Senile angioma 7103997 D 18.01 476305 Health Concerns Section Related Observation LastModified by Organization Detai ls LastModified Time None Recorded Concern Status LastModified by Organization Details LastModified Time None Recorded Advance Directives Directive N: Payers Insurance Date Sequence Insurance Name Policy Number Policy Mazariegos Covered Member ID Mazariegos Member ID Guarantor Name 03/30/2025 1 [facility] [place] ([facility] Ananth Manuel [id number] Ananth Jackson 03/30/2025 [place] [facility] (MEDICAID) Ananth Jackson [id number] Ananth Jackson Notes Date Note Type Note [...] 10mg. PCP is Dr. Robi Salcedo in [facility]. Has a history of BCC to right holiness, right forearm and forehead.[facility] dermatology for right forearm and forehead. Has not been seen by dermatology for the past 2-3 years. His dad has a history of melanoma. Cyn Fisher, JUKEBOX CHECKER [address], [place], [address], [place] - [facility] 03/16/2025 17:08:18
--- OUTSIDE RECORDS SUMMARY | 2025-04-28 08:02 | XMS_ITS | Clinical Summary ---
Author Organization [facility] Address [address] [place] [address] Care Team Providers Care Scheduling Clerk Name Role Phone Robi Salcedo MD Primary Care Provider [phone]- [phone] Allergies No known active allergies Medications Multiple [...] Daily. 4 Active neomycin-polymy timmy-dexamethame thasone (POLYDEX) 3.5-19980-7.1 ointment ophthalmic ointment Apply 1 cm strip [...] currently asymptomatic Ventricular tachycardia 10/08/2018 Overview (10/09/2018): [facility] presentation with near syncope and NS [...] 11/15/2029 020 Medical Devices Implanted Type Area Medical Office Worker Device Identifier Shelf Expiration Date Model / Serial / Lot Icm Confirm Rx 1.4cc [id number] - [id number] - [id number] Implanted:Qty: 1 on 10/09/2018 by Efrain Avina MD at [facility] 10/21/2019 [id number] / [id number] / Insurance [facility] PPO Advance Directives * CPR (Attempt to Resuscitate) (Latest Code Status on File) Date Activated Date Inactivated Comments 10/09/2018 9:17 AM 10/09/2018 9:26 PM Question Answer Comments Code Status (Patient has no pulse and is not breathing): CPR (Attempt to Resuscitate) Medical Interventions (Patie nt has pulse or is breathing): Full Care Teams Scheduling Clerk Relationship Specialty Start Date End Date Robi Salcedo MD [address] [place] [address] [place] [address] PCP - General Family Medicine 10/14/23
--- OUTSIDE RECORDS SUMMARY | 2025-04-28 08:02 | XMS_ITS | Data Portability ---
Author Organization [place] [facility] [place] Address [address] [place] [address] Care Team Providers Care Artist'S Manager Name Role Phone KATHLEEN OSEI Primary Care Provider [phone] Assessment No assessment recorded. Plan of Treatment Reminders Order Date Submit Date Provider Last Modified By Organization Details Last Modified Time Details Appointments None recorded. Lab culture, wound 2024 025 [facility] (Lab Registration) , [address] [place] [address], [address], 00:22:50 Referral None recorded. Procedures None recorded. Surgeries None recorded. Imaging None recorded. Medication Orders mupirocin 2 % topical ointment 2024 025 [employer], [address] [place] [address], [place], [place], [id number], 5 15:26:44 Patient TargetsNo targets recorded. Patient Instructions Encounter Date Encounter Id Patient Instructions Last Modified By Organization Details Last Modified Time 10/08/2024 [id number] Patient educatio n given. Spoke with her at length regarding his multiple complaints. Total time 31 minutes. Based on the chronicity of the rash, will check for a bacterial source with a swab/culture and cover him with Mupirocin. Continue to use the Triamcinolone topically as needed. Will call with the results once finalized. Discussed various sources of the rash. Possible Papular eczema. Try moisturizing lotions for eczema. No FB noted of the eye. Encouraged he call his retinal specialist first thing tomorrow morning for re-examination. Continue to increase rest, hydration and supportive care. Go to the ED if symptoms become worse / severe (as mentioned). Patient agrees with the plan. [email or web address] Not available 10/09/2024 09:46:37 I have reviewed the Past medical, Family and Social Histories along with ROS and all orders in today's record, and have noted any changes. [email or web address] Not available 10/08/2024 19:22:55 Reason for Referral None Reported. Results Created Date Observation Date Name Description Value Unit Range Abnormal Flag Note LastModifiedBy Organization Detail LastModifiedTime 10/09/1910/08/2024 CULTU RE WOUND results [facility] 10-09 1143 No Growt h at [address] [facility] 10-10 923 No Growt h at 2 Days Not Available [facility] (Pre-Op Clinic) [address] [place] [address] [place], [address], 10/10/2024 09:24:59 10/09/19 25 10/08/2024 CULTU RE WOUND note Joshua coyle flores noted testi ng perfo rmed at: [facility] [address] [place] [address] Sreedhar baldwin MD Not Available [facility] (Pre-Op Clinic) [address] [place] [address] [place], [address], 10/10/2024 09:24:59 10/09/19 25 10/08/2024 GRAM STAIN note Joshua flores noted testi ng perfo rmed at: [facility] [address] [place] [address] Sreedhar baldwin MD Not Available [facility] (Pre-Op Clinic) [address] [place] [address] [place], [address], 10/09/2024 01:00:31 10/09/19 25 10/09/2024 GRAM STAIN source WOUND Not Available [facility] (Pre-Op Clinic) [address] [place] [address] [place], [address], 10/09/2024 01:00:31 10/09/19 25 10/09/2024 GRAM STAIN quantitation #1 OCCASI ONAL Not Available [facility] (Pre-Op Clinic) [address] [place] [address] [place], [address], 10/09/2024 01:00:31 10/09/19 25 10/09/2024 GRAM STAIN organism #1 GRAM POS COCCI Not Available [facility] (Pre-Op Clinic) [address] [place] [address] [place], [address], 10/09/2024 01:00:31 10/09/19 25 10/09/2024 GRAM STAIN morphology 1 CLUSTE RS Not Available [facility] (Pre-Op Clinic) [address] [place] [address] [place], [address], 10/09/2024 01:00:31 10/09/19 25 10/09/2024 GRAM STAIN WBC RARE no WBC's seen Not Available [facility] (Pre-Op Clinic) [address] [place] [address] [place], [address], 10/09/2024 01:00:31 10/09/1910/09/2024 GRAM STAIN yeast NONE SEEN none seen Not Available [facility] (Pre-Op Clinic) [address] [place] [address] [place], [address], 10/09/2024 01:00:31 10/09/1910/09/2024 GRAM STAIN gram positive QC slide PASS PASS Not Available [facility] (Pre-Op Clinic) [address] [place] [address] [place], [address], 10/09/2024 01:00:31 10/09/1910/09/2024 GRAM STAIN gram negative QC slide PASS PASS Not Available [facility] (Pre-Op Clinic) [address] [place] [address] [place], [address], 10/09/2024 01:00:31 Result Notes None recorded. Medical Equipment None Reported. Allergies No known drug allergies Medications Name Sig Start Date Stop Date Status Note LastModified by Organization Details LastModified Time metoprolol succinate ER 50 mg tablet,exte nded release 24 hr TAKE 1/2 TO 1 TABLET 1 TIME EACH DAY 10/08 completed Not Available Not Available Not Available prednisone 20 mg tablet TAKE 2 AND 1/2 TABLETS 1 TIME EACH DAY FOR 7 DAYS active Not Available Not Available No t Available betamethaso ne, augmented 0.05 % topical cream APPLY A THIN FILM TO THE AFFECTED AREA OF SKIN 2 TIMES EACH DAY active Not Available Not Available No t Available triamcinolo ne acetonide 0.1 % topical cream APPLY A THIN FILM TO THE AFFECTED AREA OF SKIN 3 TIMES EACH DAY NEEDED FOR ITCHING FOR 7 DAYS active Not Available Not Available No t Available amoxicillin 875 mg tablet TAKE 1 TABLET EVERY 12 HOURS FOR 7 DAYS 10/08 completed Not Available Not Available Not Available cephalexin 500 mg capsule TAKE 1 CAPSULE 4 TIMES EACH DAY FOR 10 DAYS 10/08 completed Not Available Not Available Not Available clotrimazol e-betametha sone 1 %-0.05 % topical cream APPLY A THIN FILM TO THE AFFECTED AREA OF SKIN 2 TIMES EACH DAY active Not Available Not Available No t Available metoprolol tartrate 50 mg tablet TAKE 1 TABLET 2 TIMES EACH DAY active Not Available Not Available No t Available mupirocin 2 % topical ointment APPLY A THIN FILM TO THE AFFECTED AREA OF SKIN 3 TIMES EACH DAY FOR 10 DAYS active Not Available Not Available No t Available furosemide 20 mg tablet TAKE 1 TABLET 1 TIME EACH DAY active Not Available Not Available No t Available metoprolol succinate ER 25 mg tablet,exte nded release 24 hr TAKE 2 TABLETS 1 TIME EACH DAY 10/08 completed Not Available Not Available Not Available testosteron e cypionate 200 mg/mL intramuscul ar oil INJECT 1 ML INTO A MUSCLE EVERY 2 WEEKS active Not Available Not Available No t Available clotrimazol e 1 % topical cream APPLY A THIN FILM TO THE AFFECTED AREA OF SKIN 2 TIMES EACH DAY FOR 7 DAYS active Not Available Not Available No t Available neomycin-po lymyxin-hyd rocort 3.5 mg-10,000 unit/mL-1 % ear drops,susp PLACE 5 DROPS IN THE AFFECTED EAR(S) 3 TIMES EACH DAY FOR 7 DAYS active Not Available Not Available No t Available rosuvastati n 10 mg tablet TAKE 1 TABLET 1 TIME EACH DAY active Not Available Not Available No t Available Allergy Relief (fexofenadi ne) 180 mg tablet TAKE 1 TABLET 1 TIME EACH DAY 10/08 completed Not Available Not Available Not Available Vitals Date Recorded Body height Body mass index (BMI) Body weight Body temperature Oxygen saturation Oxygen saturation in Arterial blood by Pulse oximetry Heart rate Systolic And Diastolic Provider Name and Address Organization Details Last Updated DateTime 185.42 cm 35 kg/m2 494925. 98 g 98.2 [degF] 96 % 96 % 88 /min 124/80 mm[Hg] Aaliyah Fco QUIROZ [facility] [place] 19:16:23 Social History None recorded. 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 Family History Nothing Reported. Medical History No medical history recorded. Past Encounters Encounter ID Performer Location Encounter Start Date Encounter Closed Date Diagnosis/Indication Diagnosis SNOMED-CT Code Diagnosis ICD10 Code Diagnosis IMO Codes Diagnosis Note [id number] Raisa Salter A-Venkat [facility] Immediate Care- Floor 1, [address] [place] [address],[facility] [address] [facility] [address] 10/08/2024 18:55:54 10/08/2024 19:39:35 Eruption 678927224 R21 [id number] Acute-on-c hronic Feeling of sand or foreign body in eye 8471328 H57.8A1 4363348754 History of surgery 57560 5003 Z98.890 992372 Retinal repair Health Concerns Section Related Observation LastModified by Organization Detai ls LastModified Time None Recorded Concern Status LastModified by Organization Details LastModified Time None Recorded Advance Directives Directive None Recorded Payers Insurance Date Sequence Insurance Name Policy Number Policy Mazariegos Covered Member ID Mazariegos Member ID Guarantor Name 10/08/2024 1 [employer] [place] (MEDICAID HMO) Ananth Jackson [id number] Ananth Jackson 10/08/2024 1 [employer]-[place] ([place]) [id number] Ananth Jackson [id number] Ananth Jackson 10/08/2024 2 [employer] [place] ([place] Ananth Jackson [id number] Ananth Jackson Notes Date Note Type Note Provider Name and Address Organization Details Recorded Time 10/08/2024 text/html 59 y/o male presents to the clinic with multiple complaints. First, he's had FB sensation of the corner of his R eye over the last two hours. Denies any known material / object that could be in his eye. He suspects this is an eyelash. Patient has attempted visine flush without much relief. Denies any changes in vision. Patient had retinal tears fixed approximately 10 days ago in the same eye. It has been very red since the surgery and denies any changes in the appearance. Patient has also had a recurrent pruritic rash that has reoccurred in random spots across his body over the last 4-5 years. He recently noticed the rash re-appeared on his low back 3-4 days ago. This is intensely itchy and he has attempted clotrimazole / trimacinolone to the area with some relief. Patient has attempted Benadryl qhs without much relief. He's had this rash examined by a Dermatology who stated it was simply a rash according to the patient and did not explain further. No other complaints. Shaggy Carolina PA-C [address] [place] [address], [address], [place], [address], [place] [facility] [place] [facility] [place] 10/09/2024 09:46:46
--- OUTSIDE RECORDS SUMMARY | 2025-04-28 08:02 | XMS_ITS | Patient Health Record ---
Author Organization [facility] Address [address] [place] [address] [place] [address] Care Team Providers Care Hydro Excavation Operator Name Role Phone Martin Guerra Primary Care Provider June Juan Unavailable [phone] June Santana Unavailable [phone] Migration, Provider Unavailable Unavailable Allergies No Known Allergies Results Component Value Reference Range Notes Holter Monitor, 48 hour Reviewed date:09/24/2024 11:06:58 AM Interpretation: Performing Lab: Notes/Report: THYROID PANEL WITH TSH (7444 ) Reviewed date:09/16/2024 04:48:46 PM Interpretation: Performing Lab:ERIC [facility] [id number] [employer], EyeonixSwrtXG[address] Jony Molina Notes/Report: NON-FASTING; NON-FASTING; NON-FASTING; NON-FASTING; NON-FAST FASTING:YES FASTING: YES T3 UPTAKE 32 22-35 % T4 (THYROXINE), TOTAL 7.5 4.9-10.5 mcg/dL FREE T4 INDEX (T7) 2.4 1.4-3.8 TSH 1.40 0.40-4.50 mIU/L LIPID PANEL, STANDARD (7600) Reviewed date:09/16/2024 04:48:46 PM Interpretation: Performing Lab:ERIC [facility] [employer] [facility] [id number] [address] [employer], EyeonixZbvtIF[address] Jony Molina Notes/Report: NON-FASTING; NON-FASTING; NON-FASTING; NON-FASTING; [...] of LDL-C. Juan SS et al. MAYELA. 2013;310(19): 9341-1280 (http://education.[employer].ENDOGENX/faq/LWV679) CHOL/HDLC RATIO 4.8 <5.0 (calc) NON HDL CHOLESTEROL 118 <130 mg/dL (calc) For patients with diabetes plus 1 major ASCVD risk factor, treating to a non-HDL-C goal of <100 mg/dL (LDL-C of <70 mg/dL) is considered a therapeutic option. COMPREHENSIVE METABOLIC NORIS Henderson (92[address]) Reviewed date:09/16/2024 04:48:46 PM Interpretation: Performing Lab:CB, [facility] [address], [facility] CenterXubrDR[address] Jony Molina Notes/Report: NON-FASTING; NON-FASTING; NON-FASTING; NON-FASTING; [...] Reviewed date:09/16/2024 04:48:47 PM Interpretation: Performing Lab:ERIC, [address], KingnetTlflQM[address] Jony Molina Notes/Report: NON-FASTING; NON-FASTING; NON-FASTING; NON-FASTING; NON-FAST FASTING:YES FASTING: YES MAGNESIUM 2.3 1.5-2.5 mg/dL CBC (INCLUDES DIFF/PLT) (639 9) Reviewed date:09/16/2024 04:48:47 PM Interpretation: Performing Lab:ERIC, [address], KingnetGzzjCF[address] Jony Molina Notes/Report: NON-FASTING; NON-FASTING; NON-FASTING; NON-FASTING; [...] MPV 9.9 7.5-12.5 fL ABSOLUTE NEUTROPHILS 2804 3361-9700 cells/uL ABSOLUTE LYMPHOCYTES 4245 518-1143 cells/uL ABSOLUTE MONOCYTES 621 200-950 cells/uL ABSOLUTE EOSINOPHILS 291 15-500 cells/uL ABSOLUTE BASOPHILS 63 0-200 cells/uL NEUTROPHILS 49.2 LYMPHOCYTES 33.7 MONOCYTES 10.9 EOSINOPHILS 5.1 BASOPHILS 1.1 HEMOGLOBIN A1c (496) Reviewed date:09/16/2024 04:48:47 PM Interpretation: Performing Lab:ERIC [facility] [address], EyeonixNlidDB[address] Jony Molina Notes/Report: NON-FASTING; NON-FASTING; NON-FASTING; NON-FASTING; [...] A1c for diagnosis of diabetes for children. THYROID PANEL WITH TSH (7444 ) Reviewed date:05/27/2024 03:53:28 PM Interpretation: Performing Lab:ERIC [facility] [id number] [address] [employer], EyeonixLzrjJL[address] Jony Molina Notes/Report: NON-FASTING; NON-FASTING; NON-FASTING T3 UPTAKE 32 22-35 % T4 (THYROXINE), TOTAL 7.3 4.9-10.5 mcg/dL FREE T4 INDEX (T7) 2.3 1.4-3.8 TSH 1.17 0.40-4.50 mIU/L CBC (INCLUDES DIFF/PLT) (639 9) Reviewed date:05/27/2024 03:53:29 PM Interpretation: Performing Lab:ERIC [facility] [employer] [facility] [id number] [address] [facility], KingnetYznwJI[address] Jony Molina Notes/Report: NON-FASTING; NON-FASTING; NON-FASTING WHITE [...] MPV 10.3 7.5-12.5 fL ABSOLUTE NEUTROPHILS 2326 3686-6987 cells/uL ABSOLUTE LYMPHOCYTES 5688 709-1597 cells/uL ABSOLUTE MONOCYTES 699 200-950 cells/uL ABSOLUTE EOSINOPHILS 209 15-500 cells/uL ABSOLUTE BASOPHILS 61 0-200 cells/uL NEUTROPHILS 45.6 LYMPHOCYTES 35.4 MONOCYTES 13.7 EOSINOPHILS 4.1 BASOPHILS 1.2 TESTOSTERONE, TOTAL, MALES ( ADULT), IA (873) Reviewed date:05/27/2024 03:53:29 PM Interpretation: Performing Lab:ERIC, [facility]1355 [facility], [facility] CenterDpffKJ[address] Jony Molina Notes/Report: NON-FASTING; NON-FASTING; NON-FASTING TESTOSTERONE, TOTAL, MALES (ADULT), IA 61 250-827 ng/dL In hypogonadal males, Testosterone, Total, LC/MS/MS, is the recommended assay due to the diminished accuracy of immunoassay at levels below 250 ng/dL. This test code (04292) must be collected in a red-top tube [...] Vaccine Route Administration Date Status Comme nts SHINGRIX IM Intramuscular 05/26/2024 Administered SHINGRIX IM Intramuscular 09/17/2024 Administered FLUZONE 6MO - OLDER IM Intramuscular 04/21/2019 Administer ed FLUZONE 6MO - OLDER IM Intramuscular 05/26/2024 Administer ed Boostrix IM Intramuscular 11/16/2019 Administered Problems Problem Type SNOMED Code ICD Code Onset Dates Problem Status W/U Status Risk Notes Problem Type 2 diabetes mellitus with other specified complication (E11.69) Active confirmed Problem Generalized anxiety disorder (25943946) Generalized anxiety disorder (F41.1) Active confirmed Problem Onychomycosis (207797736) Onychomycosis (B35.1) Active confirmed Problem Essential hypertension (47965825) Essential hypertension (I10) Active confirmed Problem Hyperlipidemia (12941660) Hyperlipemia, idiopathic familial (E78.5) Active confirmed Problem Idiopathic peripheral neuropathy (73624255) Idiopathic peripheral neuropathy (G60.9) Active confirmed Problem Carpal tunnel syndrome (99482745) Carpal tunnel syndrome (G56.00) Active confirmed Problem Androgen deficiency (74994145) Androgen deficiency (E29.1) Active confirmed Problem Obesity (840492591) Obesity, unspecified (E66.9) Active confirmed Problem BMI 30+ - obesity (595893833) BMI 32.0-32.9,adult (Z68.32) Active confirmed Problem Fatty liver (860170808) Fatty liver (K76.0) Active confirmed Problem Obstructive sleep apnea syndrome (92956508) LISA (obstructive sleep apnea) (G47.33) Active confirmed Problem Liver cyst (44305686) Liver cyst (K76.89) Active confirmed Problem Meralgia paresthetica (27986956) Meralgia paresthetica of left side (G57.12) Active confirmed Problem Lipoma (03910460) Lipoma (D17.9) Active confirm ed Problem Vitamin B>12< deficiency anaemia (56798316) Vitamin B12 deficiency (dietary) anemia (D51.8) Active confirmed Problem Tension-type headache (037561114) Acute non intractable tension-type headache (G44.209) Active confirmed Problem Cardiac arrhythmia (845156148) Cardiac arrhythmia, unspecified cardiac arrhythmia type (I49.9) Active confirmed Problem Hyperlipidemia (21300675) Other hyperlipidemia (E78.49) Active confirmed Problem Type [...] 01/26/2025 Encounters Encounter Location Date Provider Diagnosis [facility] ERNESTO [address] [place] [address] 10/03/2024 Provider Migration Palpitations R00.[address] [address] 05/26/2024 Martin Guerra Jock itch B35.6 ; Other hyperlipidemia E78.49 ; Atypical mole D22.9 ; LISA (obstructive sleep apnea) G47.33 ; Testosterone deficiency E34.9 ; Healthcare maintenance Z00.00 and Encounter for immunization Z23 [address] [address] 06/04/2024 Martin Guerra Androgen deficiency E29.1 ; Vitamin B12 deficiency (dietary) anemia D51.8 and Abnormal thyroid blood test R79.[address] [address] 07/03/2024 June Santana Pruritic rash L28.[address] [address] 09/15/2024 Martin Guerra Type 2 diabetes mellitus with other specified complication E11.69 ; Palpitations R00.2 and Hyperlipemia, idiopathic familial E78.5 [facility] [address] [address] 09/17/2024 Martin Guerra Encounter for immunization Z23 [address] [address] 01/26/2025 Martin Guerra Type 2 diabetes mellitus with other specified complication, without long-term current use of insulin E11.69 ; Tinea cruris B35.6 and Androgen deficiency E29.[address] [address] 01/29/2025 Martin Guerra Androgen deficiency E29.[address] [address] 02/05/2025 June Juan Type 2 diabetes mellitus [...] chronic, well controlled - is going to [employer] store to obtain new CPAP mask that [...] H-VITAMIN B12 03/15/2015 H-CMP 03/15/2015 H-LIPID PANEL 01/26/2011 H-LIPID PANEL 03/15/2015 H-PSA SCREEN 03/15/2015 H-TSH 03/15/2015 H-VIT D, 25-HYDROXY 03/15/2015 C-CBC 07/14/2018 C-CBC 09/07/2019 C-CBC 05/16/2017 C-CMP 05/16/2017 C-CMP 09/07/2019 C-CMP 07/14/2018 C-LIPID PANEL 05/16/2017 C-TSH 05/16/2017 [...] Date [employer] [place]ICA[place] [address] [address] [place] [address] [id number] Ananth Jackson Self - patient is the [...]
[2025-04-28 09:25] VITALS: BP 136/87; BP 180/92; PULSE 73; RESP 16
[2025-04-28] MEDS: ISOTOPE MYOVIEW (PER STUDY) 1 DOSE IV (09:58)
[2025-04-28] MEDS: SODIUM CHLORIDE 0.9% 10ML SYR (RAD ONLY) 10 ML IV ×2 (09:58)
== END 2025-04-28 23:59 | disposition home or self-care (01) ==
LOC: RAD 07:59
PROVIDERS: PCP Family Medicine; Visit Provider Physician Assistant
DX: I25.10 Atherosclerotic heart disease of native coronary artery without angina pectoris (principal); R94.39 Abnormal result of other cardiovascular function study; E78.00 Pure hypercholesterolemia, unspecified; I10 Essential (primary) hypertension; R94.31 Abnormal electrocardiogram [ECG] [EKG]
CPT/HCPCS: 78452; 93017; 93018; A9502

== ENCOUNTER 2025-06-16 08:13 | Day surgery (SDC) | payer MEDICAID, SELFPAY ==
[2025-06-16] VITALS (9 sets, daily range): BP systolic 129–145; BP diastolic 80–102; PULSE 55–67; RESP 18–20; TEMP 37; O2SAT 91–98; BMI 34.2
--- NOTE | 2025-06-16 07:13 | IR_ITS ---
APPROVED REPORT Patient Location: Outpatient PROCEDURES Left heart catheterization Left ventriculogram Selective coronary angiogram INDICATION Abnormal Myoview, Angina pectoris Informed consent was obtained prior to the procedure. COMPLICATIONS NONE Estimated Blood Loss: LESS THAN 10 ML TECHNIQUE One percent lidocaine used to anesthetize the right anterior aspect of the wrist. The right radial artery was accessed via the Seldinger technique. A 6 Welsh sheath was placed in the right radial artery. 2.5 mg of Verapamil, 800 mcg of nitroglycerin, 1mg Lidocaine and 5000 U Heparin were given through the arterial sheath. The JL3 catheter was also used to perform left heart catheterization, left ventriculogram and selective coronary angiogram. At the end of the procedure the sheath was removed good hemostasis was achieved using Traclet band, patient was transferred to the postop holding area in stable condition. ANGIOGRAPHIC RESULTS The left main artery Normal The left anterior descending artery Has mild proximal and mid vessel 10% luminal regularities. 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 If patient has known history of fistula this does not appear to be clinically relevant 2. If no known history of fistula is present and may be reasonable to perform cardiac CTA to make sure this vessel does not supply an extracardiac structure 3. Risk factor modification 4. Increase Lasix from 20 mg a day to 40 mg a day and add Aldactone 100 mg a day for elevated LVEDP Electronically signed by : Axel Esqueda MD 06/16/2025 12:37:31
[2025-06-16 09:03] LABS: Hematocrit 45.0 % (42.0-52.0); Hemoglobin 14.8 g/dL (14.1-18.0); Immature Granulocytes % 0.2 %; Mean Corpuscular HGB Conc 32.9 g/dL (31.8-35.4); Mean Corpuscular Hemoglobin 29.5 pg (27.0-31.2); Mean Corpuscular Volume 89.6 fl (80-94); Nucleated Red Blood Cells % 0 %; Platelet Count 249 K/mm3 (142-424); Red Blood Count 5.02 M/mm3 (4.60-6.20); Red Cell Distribution Width-SD 45.8 fL; White Blood Count 5.9 K/mm3 (4.8-10.8)
[2025-06-16 09:14] LABS: Anion Gap 10.0 mEq/L (5-15); Blood Urea Nitrogen 17 mg/dl (9-20); Calcium 9.3 mg/dl (8.4-10.2); Carbon Dioxide 28 mmol/L (22.0-30.0); Chloride 105 mmol/L (98-107); Creatinine Clearance Estimated 145 mL/min (50-200); Creatinine,Serum 0.90 mg/dl (0.66-1.25); Estimated Glomerular Filt Rate 86 ml/min (>60); GFR (African American) 104 ML/MIN (>60); Glucose 106 mg/dl (74-100); Potassium 4.0 mmoL/L (3.5-5.1); Sodium 139 mmol/L (136-145)
[2025-06-16] MEDS: 0.9 % SODIUM CHLORIDE 500 ML 25 ML IV (10:31)
[2025-06-16] MEDS: LIDOCAINE 1% 10ML MDV 10 ML IJ (10:31)
[2025-06-16] MEDS: NITROGLYCERIN 800MCG/8ML SYR (CATH LAB) 800 MCG IA (10:31)
[2025-06-16] MEDS: HEPARIN 1,000 UNITS/ML 10ML VIAL (CATH LAB) 5000 UNIT IV (10:31)
[2025-06-16] MEDS: HEPARIN 1,000 UNITS/500ML NS (CATH LAB) 3000 UNIT IV (10:32)
[2025-06-16] MEDS: VERAPAMIL 2.5MG/ML 2ML VIAL 2.5 MG IV (10:32)
[2025-06-16] MEDS: FENTANYL 100MCG/2ML VIAL 50 MCG IV (10:51)
[2025-06-16] MEDS: MIDAZOLAM HCL 1MG/ML 5ML VIAL 1 MG IV (10:51)
== END 2025-06-16 13:50 | disposition home or self-care (01) ==
LOC: CATHLAB 08:15
PROVIDERS: PCP Family Medicine; Visit Provider Internal Medicine
PROC: 4A023N7 Measurement of Cardiac Sampling and Pressure, Left Heart, Percutaneous Approach (ICD-10-PCS; CPT 93452; principal; 2025-06-16 08:45)
DX: I25.119 Atherosclerotic heart disease of native coronary artery with unspecified angina pectoris (principal); R94.39 Abnormal result of other cardiovascular function study; E11.9 Type 2 diabetes mellitus without complications; I10 Essential (primary) hypertension; I48.91 Unspecified atrial fibrillation; I47.20 Ventricular tachycardia, unspecified; J86.0 Pyothorax with fistula; Z79.82 Long term (current) use of aspirin; Z79.890 Hormone replacement therapy; Z79.899 Other long term (current) drug therapy
CPT/HCPCS: 80048; 85025; 93458; 99152; C1769; C1887; J1200; J1644; J3010; J7040; Q9967

== ENCOUNTER 2025-06-22 11:18 | Outpatient (CLI) | payer MEDICAID, SELFPAY ==
--- OUTSIDE RECORDS SUMMARY | 2024-06-09 05:30 | XMS_ITS ---
Author Organization [facility] Address [address] [place] [address] Care Team Providers Care Pack Press Operator Name Role Phone Martin Guerra Primary Care Provider REASON FOR VISIT DISCUSS LABS Encounters Encounter Location Date Provider Diagnosis [facility] [address] [address] 06/09/2024 Martin Guerra Plan Of Treatment No Information Progress Notes * Ananth MISHRA ADOB:[birth year] (60 yo M)Acc No.[id number]:06/09/2024 Progress Notes Patient: Ananth HINES Provider: Rick Guerra MD :1965 A ge:59 Y S ex:Male Date:06/09/2024 Address:[facility] [address] [id number] Subjective: * Chief Complaints: * 1 . DISCUSS LABS. * Medical History: Objective: * Vitals: Assessment: Plan: * Treatment: * * Electronic signature of Ryan Guerra MD FAAP on 06/22/2025 at 11:21 AM EST Sign off status: Pending * Provider: Rick Guerra MD Date: 08/10/2023 Generated for Printi ng/Faxing/eTransmitting on: 08/23/2024 11:21 AM EST
--- OUTSIDE RECORDS SUMMARY | 2024-10-03 16:30 | XMS_ITS ---
Author Organization [facility] Address [address] [place] [address] Care Team Providers Care Commercial Energy Rater Name Role Phone Martni Guerra Primary Care Provider Migration, Provider Unavailable Unavailable REASON FOR VISIT [facility] Conversion Encounter Medications Medication SIG (Take, Route, Frequency, Duration) Notes Start Date End Date Status ICaps AREDS Formula - as directed orally; Duration: 30 day(s) Active Lasix 20 MG 1 tab(s) orally once a day Active Metoprolol Tartrate 50 MG 1 tab(s) orally 2 times a day; Duration: 30 days 09/15/2024 Active Triamcinolone Acetonide 0.1 % 1 yuki applied topically 3 times a day; Duration: 7 days 07/03/2024 Active Clotrimazole 1 % 1 yuki applied topically 2 times a day; Duration: 7 days 07/03/2024 Active Rosuvastatin Calcium 10 MG 1 tab(s) orally once a day; Duration: 90 days 02/27/2024 Active C-PAP MACHINE *Please review f or potential replacement for e-prescription and drug interaction check* Active Encounters Encounter Location Date Provider Diagnosis [facility] [address] [place] [address] 10/03/2024 Provider Migration Palpitations R00.2 Assessments Encounter Date Diagnosis (ICD Code) Assessment Notes Treatment Notes Treatment Clinical Notes Section Notes 10/03/2024 Palpitations (ICD-10 - R00.2) Plan Of Treatment Medication Medication Name Sig Start Date Stop Date Notes Metoprolol Tartrate 50 MG 1 tab(s) orall y 2 times a day; Duration: 30 days 09/15/2024 Progress Notes * Ananth MISHRA ADOB:[birth year] (60 yo M)Acc No.[id number]:10/03/2024 Patient: Ananth HINES Provider: Raisa wood Migration :1965 A ge:59 Y S ex:Male Date:10/03/2024 Address:[address] [place] [address] [address] [place], [id number] Pcp:Martin Guerra Subjective: * Chief Complaints: * 1 . Multum To Medispan Conversion Encounter. * Medical History: * Medications: T aking Lasix 20 MG Tablet 1 tab(s) orally once a day , Taking ICaps AREDS Formula - Tablet as directed orally , Taking C-PAP MACHINE , Notes to Pharmacist: *Please review for potential replacement for e-prescription and drug interaction check*, Taking Rosuvastatin Calcium 10 MG Tablet 1 tab(s) orally once a day , Taking Clotrimazole 1 % Cream 1 yuki applied topically 2 times a day , Taking Triamcinolone Acetonide 0.1 % Cream 1 yuki applied topically 3 times a day Objective: * Vitals: Assessment: * Assessment: 1. P alpitations - R00.2 (Primary) Plan: * Treatment: * * Electronic signature of Prov ider Migration on 06/22/2025 at 11:21 AM EST Sign off status: Pending * Provider: Raisa Coleman Date: 0 10/03/2024 Generated for Guillermina navarro/Nataly/Ruddyitting on: 1 08/23/2024 11:21 AM EST
--- OUTSIDE RECORDS SUMMARY | 2025-02-23 09:45 | XMS_ITS ---
Author Organization [facility] PE D ERNESTO Address [address] [place] [address] Care Team Providers Care Indian Trader Name Role Phone Martin Guerra Primary Care Provider REASON FOR VISIT med ck, Wellness EXam Encounters Encounter Location Date Provider Diagnosis [address] [address] 02/23/2025 Martin Guerra Plan Of Treatment No Information Progress Notes * Ananth MISHRA ADOB:[birth year] (60 yo M)Acc No.[id number]:02/23/2025 Progress Notes Patient: Ananth HINES Provider: Rick Guerra MD :1965 A ge:60 Y S ex:Male Date:02/23/2025 Address:[facility] [place] [id number] Subjective: * Chief Complaints: * 1 . Med ck. 2. Wellness EXam. * Medical History: Objective: * Vitals: Assessment: Plan: * Treatment: * * Electronic signature of Ryan Guerra MD FAAP on 06/22/2025 at 11:20 AM EST Sign off status: Pending * Provider: Rick Guerra MD Date: 0 02/23/2025 Generated for Printi ng/Faxing/eTransmitting on: 1 08/23/2024 11:20 AM EST
[2025-06-22 08:44] VITALS: BMI 34.2
--- OUTSIDE RECORDS SUMMARY | 2025-06-22 11:21 | XMS_ITS | Clinical Summary ---
[facility] Address [address] [place] [address] Care Team Providers Care Program Architect Name Role Phone Robi Salcedo MD Primary Care Provider [phone] Allergies No known active allergies Medications Multiple [...] Daily. 4 Active neomycin-polymy timmy-dexamethame thasone (POLYDEX) 3.5-71385-4.1 ointment ophthalmic ointment Apply 1 cm strip [...] currently asymptomatic Ventricular tachycardia 10/08/2018 Overview (10/09/2018): [place] [facility] presentation with near syncope and NS [...] e 04/08/2023 Family and Community Support Answer Aleln e Recorded Help with Day-to-Day Activities Not [...] 11/15/2029 020 Medical Devices Implanted Type Area Cone Examiner Device Identifier Shelf Expiration Date Model / Serial / Lot Icm Confirm Rx 1.4cc [id number] - [id number] - [id number] Implanted:Qty: 1 on 10/09/2018 by Efrain Avina MD at [facility] 10/21/2019 [id number] / [id number] / Insurance [facility] PPO Advance Directives * CPR (Attempt to Resuscitate) (Latest Code Status on File) Date Activated Date Inactivated Comments 10/09/2018 9:17 AM 10/09/2018 9:26 PM Question Answer Comments Code Status (Patient has no pulse and is not breathing): CPR (Attempt to Resuscitate) Medical Interventions (Patie nt has pulse or is breathing): Full Care Teams Program Architect Relationship Specialty Start Date End Date Robi Salcedo MD [address] [place] [address] [place] [address] PCP - General Family Medicine 10/14/23
--- OUTSIDE RECORDS SUMMARY | 2025-06-22 11:21 | XMS_ITS | Patient Health Record ---
Author Organization [facility] Address [address] [place] [address] Care Team Providers Care Centrifugal Station Operator Name Role Phone Martin Guerra Primary Care Provider June Juan Unavailable [phone] June Santana Unavailable [phone] Migration, Provider Unavailable Unavailable Allergies No Known Allergies Results Component Value Reference Range Notes HEMOGLOBIN A1c (496) Reviewed date:09/16/2024 04:48:47 PM Interpretation: Performing Lab:ERIC [facility] [id number] [employer]teEcovision, Entourage Medical TechnologiesOpcnLO[address] Jony Molina Notes/Report: NON-FASTING; NON-FASTING; NON-FASTING; NON-FASTING; NON-FAST FASTING:YES FASTING: YES HEMOGLOBIN A1c 6.0 <5.7 % of total Hgb targets should be individualized based on duration of considerations. indicates that their diabetes is well controlled. A1c Currently, no consensus exists regarding use of hemoglobin A1c for diagnosis of diabetes for children. of diabetes. For someone with known diabetes, a value <7% prediabetes and should be confirmed with a follow-up test. For someone without known diabetes, a hemoglobin This assay result is consistent with an increased risk A1c value between 5.7% and 6.4% is consistent with diabetes, age, comorbid conditions, and other MAGNESIUM (622) Reviewed date:09/16/2024 04:48:47 PM Interpretation: Performing Lab:ERIC [facility] [id number] [employer]tel BlFlattr, [facility] ClinicKxvlXL[address] Jony Molina Notes/Report: NON-FASTING; NON-FASTING; NON-FASTING; NON-FASTING; NON-FAST FASTING:YES FASTING: YES MAGNESIUM 2.3 1.5-2.5 mg/dL Holter Monitor, 48 hour Reviewed date:09/24/2024 11:06:58 AM Interpretation: Performing Lab: Notes/Report: CBC (INCLUDES DIFF/PLT) (639 9) Reviewed date:09/16/2024 04:48:47 PM Interpretation: Performing Lab:CB, [facility] Ofgx7648 [employer]tel [facility], [facility] ClinicXgxnMZ[address] Jony Molina Notes/Report: NON-FASTING; NON-FASTING; NON-FASTING; NON-FASTING; NON-FAST FASTING:YES FASTING: YES WHITE BLOOD CELL COUNT 5.7 3.8-10.8 Thousand/ uL RED BLOOD CELL COUNT 5.49 4.20-5.80 Million/uL HEMOGLOBIN 16.3 13.2-17.1 g/dL HEMATOCRIT 48.9 38.5-50.0 % MCV 89.1 80.0-100.0 fL MCH 29.7 27.0-33.0 pg MCHC 33.3 32.0-36.0 g/dL value (in the range of 30 to 32 g/dL) is most likely red cell parameters and the patient's clinical condition. not clinically significant; however, it should be interpreted with caution in correlation with other For adults, a slight decrease in the calculated MCHC RDW 13.8 11.0-15.0 % PLATELET COUNT 238 140-400 Thousand/uL MPV 9.9 7.5-12.5 fL ABSOLUTE NEUTROPHILS 2804 7807-7875 cells/uL ABSOLUTE LYMPHOCYTES 7280 050-3175 cells/uL ABSOLUTE MONOCYTES 621 200-950 cells/uL ABSOLUTE EOSINOPHILS 291 15-500 cells/uL ABSOLUTE BASOPHILS 63 0-200 cells/uL NEUTROPHILS 49.2 LYMPHOCYTES 33.7 MONOCYTES 10.9 EOSINOPHILS 5.1 BASOPHILS 1.1 COMPREHENSIVE METABOLIC PANE L (87723) Reviewed date:09/16/2024 04:48:46 PM Interpretation: Performing Lab:ERIC, [facility] [id number] [address] [facility], [facility] ClinicZcnjAQ[address] Jony Molina Notes/Report: NON-FASTING; NON-FASTING; NON-FASTING; NON-FASTING; NON-FAST FASTING:YES FASTING: YES GLUCOSE 102 65-99 mg/dL follow-up test. prediabetes and should be confirmed with a Fasting reference interval For someone without known diabetes, a glucose value between 100 and 125 mg/dL is consistent with UREA NITROGEN (BUN) 13 7-25 mg/dL CREATININE [...] 20 10-35 U/L ALT 29 9-46 U/L LIPID PANEL, STANDARD (7600) Reviewed date:09/16/2024 04:48:46 PM Interpretation: Performing Lab:ERIC, [facility]1355 [facility]te[facility], [facility] ClinicUfmgRR[address] Jony Molina Notes/Report: NON-FASTING; NON-FASTING; NON-FASTING; NON-FASTING; NON-FAST FASTING:YES FASTING: YES CHOLESTEROL, TOTAL 149 <200 mg/dL HDL CHOLESTEROL 31 > OR = 40 mg/dL TRIGLYCERIDES 197 <150 mg/dL LDL-CHOLESTEROL 89 (http://education.Boomtown!.com/faq/UHM822) LDL-C is now calculated using the [facility] Reference range: <100 better accuracy than the Friedewald equation in the calculation, which is a validated novel method providing Desirable range <100 mg/dL for primary prevention; estimation of LDL-C. Juan SS et al. MAYELA. 2013;310(19): 1486-3206 with > or = 2 CHD risk factors. <70 mg/dL for patients with CHD or diabetic patients CHOL/HDLC RATIO 4.8 <5.0 (calc) NON HDL CHOLESTEROL 118 <130 mg/dL (calc) For patients with diabetes plus 1 major ASCVD risk (LDL-C of <70 mg/dL) is considered a therapeutic factor, treating to a non-HDL-C goal of <100 mg/dL option. THYROID PANEL WITH TSH (7444 ) Reviewed date:09/16/2024 04:48:46 PM Interpretation: Performing Lab:CB, [facility]the[address], [facility] ClinicPwidBJ[address] Jony Molina Notes/Report: NON-FASTING; NON-FASTING; NON-FASTING; NON-FASTING; NON-FAST FASTING:YES FASTING: YES T3 UPTAKE 32 22-35 % T4 (THYROXINE), TOTAL 7.5 4.9-10.5 mcg/dL FREE T4 INDEX (T7) 2.4 1.4-3.8 TSH 1.40 0.40-4.50 mIU/L Medications Medication SIG (Take, Route, Frequency, Duration) [...] (E11.69) Active confirmed Problem Generalized anxiety disorder (15454832) Generalized anxiety disorder (F41.1) Active confirmed Problem Onychomycosis (351097868) Onychomycosis (B35.1) Active confirmed Problem Essential hypertension (29092703) Essential hypertension (I10) Active confirmed Problem Hyperlipidemia (21318814) Hyperlipemia, idiopathic familial (E78.5) Active confirmed Problem Idiopathic peripheral neuropathy (96087295) Idiopathic peripheral neuropathy (G60.9) Active confirmed Problem Carpal tunnel syndrome (77071077) Carpal tunnel syndrome (G56.00) Active confirmed Problem Androgen deficiency (63855987) Androgen deficiency (E29.1) Active confirmed Problem Obesity (933492872) Obesity, unspecified (E66.9) Active confirmed Problem BMI 30+ - obesity (669144175) BMI 32.0-32.9,adult (Z68.32) Active confirmed Problem Fatty liver (206894899) Fatty liver (K76.0) Active confirmed Problem Obstructive sleep apnea syndrome (68161288) LISA (obstructive sleep apnea) (G47.33) Active confirmed Problem Liver cyst (44630175) Liver cyst (K76.89) Active confirmed Problem Meralgia paresthetica (72859409) Meralgia paresthetica of left side (G57.12) Active confirmed Problem Lipoma (43348934) Lipoma (D17.9) Active confirm ed Problem Vitamin B>12< deficiency anaemia (24472106) Vitamin B12 deficiency (dietary) anemia (D51.8) Active confirmed Problem Tension-type headache (587366864) Acute non intractable tension-type headache (G44.209) Active confirmed Problem Cardiac arrhythmia (530007380) Cardiac arrhythmia, unspecified cardiac arrhythmia type (I49.9) Active confirmed Problem Hyperlipidemia (44584295) Other hyperlipidemia (E78.49) Active confirmed Problem Type [...] 01/26/2025 Encounters Encounter Location Date Provider Diagnosis [facility] [address] [place] [address] 10/03/2024 Provider Migration Palpitations R00.2 [facility] [address] [address] 07/03/2024 June Santana Pruritic rash L28.2 [facility] [address] [address] 09/15/2024 Martin Guerra Type 2 diabetes mellitus with other specified complication E11.69 ; Palpitations R00.2 and Hyperlipemia, idiopathic familial E78.5 [facility] [address] [address] 09/17/2024 Martinvicki Guerra Encounter for immunization Z23 [place] [address] [address] 01/26/2025 Martin Guerra Type 2 diabetes mellitus with other specified complication, without long-term current use of insulin E11.69 ; Tinea cruris B35.6 and Androgen deficiency E29.1 [facility] [address] [address] 01/29/2025 Martin Guerra Androgen deficiency E29.1 [facility] [address] [address] 02/05/2025 June Juan Type 2 diabetes mellitus with other specified complication, without long-term current use of insulin E11.69 Assessments Encounter Date Diagnosis (ICD Code) Assessment Notes Treatment Notes Treatment Clinical Notes Section Notes 07/03/2024 Pruritic rash (ICD-10 - L28.2) Patient [...] 09/15/2024 Hyperlipemia, idiopathic familial (ICD-10 - E78.5) Plan Of Treatment Pending Test Test Name Order Date [facility]TREM[facility] 0 CT Scan [...] Date [employer] [place] [address] [address] [place] [address] [id number] Ananth Jackson Self - patient is the [...]
== END 2025-06-22 23:59 | disposition home or self-care (01) ==
LOC: PREOP 11:19
PROVIDERS: PCP Family Medicine; Visit Provider Surgery
DX: Z01.812 Encounter for preprocedural laboratory examination (principal)

== ENCOUNTER 2025-06-28 14:57 | Outpatient (CLI) | payer MEDICAID, SELFPAY ==
--- OUTSIDE RECORDS SUMMARY | 2024-06-09 05:30 | XMS_ITS ---
Author Organization [facility] Address [address] [place] [address] Care Team Providers Care Tab Cutting Machine Operator Name Role Phone Martin Guerra Primary Care Provider REASON FOR VISIT DISCUSS LABS Encounters Encounter Location Date Provider Diagnosis [facility] [address] [address] 06/09/2024 Martin Guerra Plan Of Treatment No Information Progress Notes * Ananth MISHRA ADOB:[birth year] (60 yo M)Acc No.[id number]:06/09/2024 Progress Notes Patient: Ananth Cormier Provider: Rick Guerra MD :1965 A ge:59 Y S ex:Male Date:06/09/2024 Address:[facility] [address] [id number] Subjective: * Chief Complaints: * D ISCUSS LABS * Electronic signature of Ryan Guerra MD FAAP on 06/28/2025 at 03:07 PM EST Sign off status: Pending * Provider: Rick Guerra MD Date: 08/10/2023 Generated for Printi ng/Faxing/eTransmitting on: 03:07 PM EST
--- OUTSIDE RECORDS SUMMARY | 2024-10-03 16:30 | XMS_ITS ---
Author Organization [facility] Address [address] [facility] [address] [place] [address] Care Team Providers Care Clinical Unit Coordinator Name Role Phone Martin Guerra Primary Care Provider [phone] Migration, Provider Unavailable Unavailable REAS[facility] FOR VISIT [facility] Conversion Encounter Medications Medication SIG (Take, Route, Frequency, Duration) Notes Start Date End Date Status ICaps AREDS Formula - Tablet as directed orally; Duration: 30 day(s) Active Lasix 20 MG Tablet 1 tab(s) orally once a day Active Metoprolol Tartrate 50 MG Tablet 1 tab(s) orally 2 times a day; Duration: 30 days 09/15/2024 Active Triamcinolone Acetonide 0.1 % Cream 1 yuki applied topically 3 times a day; Duration: 7 days 07/03/2024 Active Clotrimazole 1 % Cream 1 yuki applied topically 2 times a day; Duration: 7 days 07/03/2024 Active Rosuvastatin Calcium 10 MG Tablet 1 tab(s) orally once a day; Duration: 90 days 02/27/2024 Active C-PAP MACHINE *Please review f or potential replacement for e-prescription and drug interaction check* Active Encounters Encounter Location Date Provider Diagnosis [facility] [address] [place] [address] 10/03/2024 Provider Migration Palpitations R00.2 Assessments Encounter Date Diagnosis (ICD Code) Assessment Notes Treatment Notes Treatment Clinical Notes Section Notes 10/03/2024 Palpitations (ICD-10 - R00.2) Plan Of Treatment Medication Medication Name Sig Start Date Stop Date Notes Metoprolol Tartrate 50 MG Tablet 1 tab(s) orally 2 times a day; Duration: 30 days 09/15/2024 Progress Notes * Ananth MISHRA ADOB:[birth year] (60 yo M)Acc No.[id number]:10/03/2024 Patient: Ananth Cormier Provider: Raisa Coleman :1965 A ge:59 Y S ex:Male Date:10/03/2024 Address:[address] [place] [address] [id number] Pcp:Martin Guerra Subjective: * Chief Complaints: * M ultum To Medispan Conversion Encounter * Medications: T akingLasix 20 MG Tablet 1 tab(s) orally once a day ICaps AREDS Formula - Tablet as directed orally C-PAP MACHINE , Notes to Pharmacist: *Please review for potential replacement for e-prescription and drug interaction check*Rosuvastatin Calcium 10 MG Tablet 1 tab(s) orally once a day Clotrimazole 1 % Cream 1 yuki applied topically 2 times a day Triamcinolone Acetonide 0.1 % Cream 1 yuki applied topically 3 times a day Taking Lasix 20 MG Tablet 1 tab(s) orally once a day Taking ICaps AREDS Formula - Tablet as directed orally Taking C-PAP MACHINE , Notes to Pharmacist: *Please review for potential replacement for e-prescription and drug interaction check*Taking Rosuvastatin Calcium 10 MG Tablet 1 tab(s) orally once a day Taking Clotrimazole 1 % Cream 1 yuki applied topically 2 times a day Taking Triamcinolone Acetonide 0.1 % Cream 1 yuki applied topically 3 times a day Assessment: * Assessment: 1. P alpitations - R00.2 (Primary) Plan: * Treatment: Billing Information: * Procedure Codes: * Electronic signature of Prov ider Migration on 06/28/2025 at 03:07 PM EST Sign off status: Pending * Provider: Raisa Coleman Date: 0 10/03/2024 Generated for Guillermina navarro/Nataly/Sylvester on: 1 03:07 PM EST
--- OUTSIDE RECORDS SUMMARY | 2025-02-23 09:45 | XMS_ITS ---
Author Organization [facility] Address [address] [place] [address] Care Team Providers Care Hedge Fund Principal Name Role Phone Martin Guerra Primary Care Provider REASON FOR VISIT med ck, Wellness EXam Encounters Encounter Location Date Provider Diagnosis [place] [address] [address] 02/23/2025 Martin Guerra Plan Of Treatment No Information Progress Notes * Ananth MISHRA ADOB:[birth year] (60 yo M)Acc No.[id number]:02/23/2025 Progress Notes Patient: Ananth Cormier Provider: Rick Guerra MD :1965 A ge:60 Y S ex:Male Date:02/23/2025 Address:[facility] [address] [id number] Subjective: * Chief Complaints: * M ed ckWellness EXam Billing Information: * Procedure Codes: * Electronic signature of Ryan Guerra MD FAAP on 06/28/2025 at 03:07 PM EST Sign off status: Pending * Provider: Rick Guerra MD Date: 0 02/23/2025 Generated for Printi ng/Faxing/eTransmitting on: 1 03:07 PM EST
--- OUTSIDE RECORDS SUMMARY | 2025-06-28 15:07 | XMS_ITS | Patient Health Record ---
Author Organization [facility] Address [address] [place] [address] Care Team Providers Care Sagger Maker Name Role Phone CalMartin smith Primary Care Provider [phone] June Juan Unavailable [phone] June Santana Unavailable [phone] Migration, Provider Unavailable Unavailable Allergies No Known Allergies Results Component Value Reference Range Flag Notes Holter Monitor, 48 hour Reviewed date:09/24/2024 11:06:58 AM Interpretation: Performing Lab: Notes/Report: CBC (INCLUDES DIFF/PLT) (639 9) Reviewed date:09/16/2024 04:48:47 PM Interpretation: Performing Lab:CB, [facility] [address], [facility] Gran[facility] ManorEfcwYC[address] Jony Molina Notes/Report: NON-FASTING; NON-FASTING; NON-FASTING; NON-FASTING; NON-FAST FASTING:YES FASTING: YES WHITE BLOOD CELL COUNT 5.7 3.8-10.8 Thousand/uL N RED BLOOD CELL COUNT 5.49 4.20-5.80 Million/uL N HEMOGLOBIN 16.3 13.2-17.1 g/dL N HEMATOCRIT 48.9 38.5-50.0 % N MCV 89.1 80.0-100.0 fL N MCH 29.7 27.0-33.0 pg N MCHC 33.3 32.0-36.0 g/dL N value (in the range of 30 to 32 g/dL) is most likely red cell parameters and the patient's clinical condition. not clinically significant; however, it should be interpreted with caution in correlation with other For adults, a slight decrease in the calculated MCHC RDW 13.8 11.0-15.0 % N PLATELET COUNT 238 140-400 Thousand/uL N MPV 9.9 7.5-12.5 fL N ABSOLUTE NEUTROPHILS 2804 2297-4833 cells/uL N ABSOLUTE LYMPHOCYTES 2607 861-8300 cells/uL N ABSOLUTE MONOCYTES 621 200-950 cells/uL N ABSOLUTE EOSINOPHILS 291 15-500 cells/uL N ABSOLUTE BASOPHILS 63 0-200 cells/uL N NEUTROPHILS 49.2 N LYMPHOCYTES 33.7 N MONOCYTES 10.9 N EOSINOPHILS 5.1 N BASOPHILS 1.1 N COMPREHENSIVE METABOLIC PANE L (41573) Reviewed date:09/16/2024 04:48:46 PM Interpretation: Performing Lab:ERIC, [facility] Manore1355 [facility]teChristian [facility], [facility] HospitalPbqzEU[address] Jony Molina Notes/Report: NON-FASTING; NON-FASTING; NON-FASTING; NON-FASTING; NON-FAST FASTING:YES FASTING: YES GLUCOSE 102 65-99 mg/dL H follow-up test. prediabetes and should be confirmed with a Fasting reference interval For someone without known diabetes, a glucose value between 100 and 125 mg/dL is consistent with UREA NITROGEN (BUN) 13 7-25 mg/dL N CREATININE 0.81 0.70-1.30 mg/dL N EGFR 102 > OR = 60 mL/min/1.73m2 N BUN/CREATININE RATIO SEE NOTE: 6-22 (calc) Not Reported: BUN and Creatinine are within reference range. SODIUM 142 135-146 mmol/L N POTASSIUM 4.0 3.5-5.3 mmol/L N CHLORIDE 103 98-110 mmol/L N CARBON DIOXIDE 28 20-32 mmol/L N CALCIUM 9.6 8.6-10.3 mg/dL N PROTEIN, TOTAL 7.5 6.1-8.1 g/dL N ALBUMIN 4.4 3.6-5.1 g/dL N GLOBULIN 3.1 1.9-3.7 g/dL (calc) N ALBUMIN/GLOBULIN RATIO 1.4 1.0-2.5 (calc) N BILIRUBIN, TOTAL 0.8 0.2-1.2 mg/dL N ALKALINE PHOSPHATASE 76 35-144 U/L N AST 20 10-35 U/L N ALT 29 9-46 U/L N LIPID PANEL, STANDARD (7600) Reviewed date:09/16/2024 04:48:46 PM Interpretation: Performing Lab:ERIC [facility] Mvlc0126 [facility] Centerte[facility], [facility] HospitalOtfyYA[address] Jony Molina Notes/Report: NON-FASTING; NON-FASTING; NON-FASTING; NON-FASTING; NON-FAST FASTING:YES FASTING: YES CHOLESTEROL, TOTAL 149 <200 mg/dL N HDL CHOLESTEROL 31 > OR = 40 mg/dL L TRIGLYCERIDES 197 <150 mg/dL H LDL-CHOLESTEROL 89 N (http://IM5.[employer]/faq/SBO171) LDL-C is now calculated using the [facility] Reference range: <100 better accuracy than the Friedewald equation in the calculation, which is a validated novel method providing Desirable range <100 mg/dL for primary prevention; estimation of LDL-C. Juan SS et al. MAYELA. 2013;310(19): 1922-3828 with > or = 2 CHD risk factors. <70 mg/dL for patients with CHD or diabetic patients CHOL/HDLC RATIO 4.8 <5.0 (calc) N NON HDL CHOLESTEROL 118 <130 mg/dL (calc) N For patients with diabetes plus 1 major ASCVD risk (LDL-C of <70 mg/dL) is considered a therapeutic factor, treating to a non-HDL-C goal of <100 mg/dL option. THYROID PANEL WITH TSH (8544 ) Reviewed date:09/16/2024 04:48:46 PM Interpretation: Performing Lab:ERIC [facility] Xajh5590 [facility] Centerte[facility], [facility] HospitalWqlmNT[address] Jony Molina Notes/Report: NON-FASTING; NON-FASTING; NON-FASTING; NON-FASTING; NON-FAST FASTING:YES FASTING: YES T3 UPTAKE 32 22-35 % N T4 (THYROXINE), TOTAL 7.5 4.9-10.5 mcg/dL N FREE T4 INDEX (T7) 2.4 1.4-3.8 N TSH 1.40 0.40-4.50 mIU/L N HEMOGLOBIN A1c (496) Reviewed date:09/16/2024 04:48:47 PM Interpretation: Performing Lab:ERIC [facility] Kwjc8604 [address] [facility], [facility] HospitalXlwwLR[address] Jony Molina Notes/Report: NON-FASTING; NON-FASTING; NON-FASTING; NON-FASTING; NON-FAST FASTING:YES FASTING: YES HEMOGLOBIN A1c 6.0 <5.7 % of total Hgb H targets should be individualized based on duration [...] Reviewed date:09/16/2024 04:48:47 PM Interpretation: Performing Lab:ERIC [facility] Cmhf0323 [address] [facility], [facility] HospitalKhgbHP[address] Jony Molina Notes/Report: NON-FASTING; NON-FASTING; NON-FASTING; NON-FASTING; NON-FAST FASTING:YES FASTING: YES MAGNESIUM 2.3 1.5-2.5 mg/dL N Medications Medication SIG (Take, Route, Frequency, Duration) Notes Start Date End Date Status Testosterone Cypionate 100 MG/ML Solution 1 mL Intramuscular weekly; Duration: 90 days 01/30/2025 Active Triamcinolone Acetonide 0.1 % Cream 1 yuki applied topically 3 times a day; Duration: 7 days 07/03/2024 Active Metoprolol Tartrate 50 mg Tablet TAKE 1 TABLET 2 TIMES EACH DAY; Duration: 30 Active Clotrimazole-Betamethasone 1-0.05 % Cream 1 application Externally Twice a day; Duration: 14 days 01/26/2025 Active Ozempic (0.25 or 0.5 MG/DOSE) 2 MG/3ML Solution Pen-injector 0.25 mg once a week for 4 weeks and then 0.5 mg weekly Subcutaneous once a week; Duration: 28 days 02/05/2025 Active Lasix 20 MG Tablet 1 tab(s) orally once a day Active Rosuvastatin Calcium 10 MG Tablet 1 tab(s) orally once a day; Duration: 90 days 02/27/2024 Active Clotrimazole 1 % Cream 1 yuki applied top ically 2 times a day; Duration: 7 days 07/03/2024 Active ICaps AREDS Formula - Tablet as directed orally; Duration: 30 day(s) Active C-PAP MACHINE Active Immunizations Vaccine Route Administration Date Status Comme nts SHINGRIX IM Intramuscular 05/26/2024 Administered SHINGRIX IM Intramuscular 09/17/2024 Administered FLUZONE 6MO - OLDER IM Intramuscular 04/21/2019 Administer ed FLUZONE 6MO - OLDER IM Intramuscular 05/26/2024 Administer ed Boostrix IM Intramuscular 11/16/2019 Administered Social History Social History Additional Details Category Social Info Options Details Social History Occupation: [email or web address] Travel outside [place]: yes [place] 2013 Alcohol: socially Sexually active: yes Recreational drug use: no Exercise: yes Home smoke detector use: yes Caffeine: yes tea daily Living Will Yes Section Notes: , lives alone. Lives alone. Lives alone. Lives alone. Lives alone. Lives alone. Lives alone. Lives alone. Lives alone. Lives alone. Lives alone. Lives alone. Lives alone. Lives alone. Lives alone. Lives alone. Lives alone. Lives alone. Lives alone. Lives alone. Lives alone. Lives alone. Lives alone. Lives alone. Lives alone. Problems Problem Type SNOMED Code ICD Code Onset Dates Problem Status W/U Status Risk Notes Problem Type 2 diabetes mellitus with other specified complication (E11.69) Active confirmed Problem Generalized anxiety disorder (10178505) Generalized anxiety disorder (F41.1) Active confirmed Problem Onychomycosis (094304350) Onychomycosis (B35.1) Active confirmed Problem Essential hypertension (57109739) Essential hypertension (I10) Active confirmed Problem Hyperlipidemia (96679129) Hyperlipemia, idiopathic familial (E78.5) Active confirmed Problem Idiopathic peripheral neuropathy (92310015) Idiopathic peripheral neuropathy (G60.9) Active confirmed Problem Carpal tunnel syndrome (64547491) Carpal tunnel syndrome (G56.00) Active confirmed Problem Androgen deficiency (17550038) Androgen deficiency (E29.1) Active confirmed Problem Obesity (136465738) Obesity, unspecified (E66.9) Active confirmed Problem BMI 30+ - obesity (193091485) BMI 32.0-32.9,adult (Z68.32) Active confirmed Problem Fatty liver (028120234) Fatty liver (K76.0) Active confirmed Problem Obstructive sleep apnea syndrome (40040183) LISA (obstructive sleep apnea) (G47.33) Active confirmed Problem Liver cyst (87148846) Liver cyst (K76.89) Active confirmed Problem Meralgia paresthetica (65517087) Meralgia paresthetica of left side (G57.12) Active confirmed Problem Lipoma (49310902) Lipoma (D17.9) Active confirm ed Problem Vitamin B>12< deficiency anaemia (34890578) Vitamin B12 deficiency (dietary) anemia (D51.8) Active confirmed Problem Tension-type headache (995405089) Acute non intractable tension-type headache (G44.209) Active confirmed Problem Cardiac arrhythmia (900295145) Cardiac arrhythmia, unspecified cardiac arrhythmia type (I49.9) Active confirmed Problem Hyperlipidemia (53985572) Other hyperlipidemia (E78.49) Active confirmed Problem Type [...] 01/26/2025 Encounters Encounter Location Date Provider Diagnosis [facility] [address] [place] [address] 10/03/2024 Provider Migration Palpitations R00.2 [facility] [address] [address] 07/03/2024 June Santana Pruritic rash L28.2 [facility] [address] [address] 09/15/2024 Martin Guerra Type 2 diabetes mellitus with other specified complication E11.69 ; Palpitations R00.2 and Hyperlipemia, idiopathic familial E78.5 [facility] [address] [address] 09/17/2024 Martin Guerra Encounter for immunization Z23 [place] [address] 01/26/2025 Martin Guerra Type 2 diabetes mellitus with other specified complication, without long-term current use of insulin E11.69 ; Tinea cruris B35.6 and Androgen deficiency E29.[address] [address] 01/29/2025 Martin Guerra Androgen deficiency E29.[address] [address] 02/05/2025 June Juan Type 2 diabetes mellitus [...] Date [employer] [address] [address] [place] [address] [phone] [id number] Ananth Jackson Self - patient is the [...]
--- OUTSIDE RECORDS SUMMARY | 2025-06-28 15:07 | XMS_ITS | Clinical Summary ---
[facility] Address [address] [place] [address] Care Team Providers Care Document Imaging Manager Name Role Phone Robi Salcedo MD Primary Care Provider [phone] Allergies No known active allergies Medications Multiple [...] Daily. 4 Active neomycin-polymy timmy-dexamethame thasone (POLYDEX) 3.5-55827-4.1 ointment ophthalmic ointment Apply 1 cm strip [...] currently asymptomatic Ventricular tachycardia 10/08/2018 Overview (10/09/2018): [place] ER presentation with near syncope and NS [...] 11/15/2029 020 Medical Devices Implanted Type Area Nail Making Machine Setter Device Identifier Shelf Expiration Date Model / Serial / Lot Icm Confirm Rx 1.4cc [id number] - [id number] - [id number] Implanted:Qty: 1 on 10/09/2018 by Efrain Avina MD at [facility] 10/21/2019 [id number] / [id number] / Insurance [facility] PPO Advance Directives * CPR (Attempt to Resuscitate) (Latest Code Status on File) Date Activated Date Inactivated Comments 10/09/2018 9:17 AM 10/09/2018 9:26 PM Question Answer Comments Code Status (Patient has no pulse and is not breathing): CPR (Attempt to Resuscitate) Medical Interventions (Patie nt has pulse or is breathing): Full Care Teams Document Imaging Manager Relationship Specialty Start Date End Date Robi Salcedo MD [address] [place] [address] PCP - General Family Medicine 10/14/23
== END 2025-06-28 23:59 | disposition home or self-care (01) ==
LOC: RT 14:58
PROVIDERS: PCP Family Medicine; Visit Provider Physician Assistant
DX: I10 Essential (primary) hypertension (principal); I25.10 Atherosclerotic heart disease of native coronary artery without angina pectoris; R09.89 Other specified symptoms and signs involving the circulatory and respiratory systems

== ENCOUNTER 2025-06-30 09:53 | Day surgery (SDC) | payer MEDICAID, SELFPAY ==
[2025-06-22 13:51] VITALS: BMI 34.2
[2025-06-30] VITALS (9 sets, daily range): BP systolic 126–145; BP diastolic 67–97; PULSE 67–76; RESP 16–18; TEMP 36.1–36.6; O2SAT 93–96; BMI 34.2
[2025-06-30] MEDS: LACTATED RINGERS 1000ML 1,000 ML 25 ML IV (11:06)
--- NOTE | 2025-06-30 11:11 | P.PNANES_ITS ---
[facility] Disclaimer: The information contained in this section may have been updated after the patient was seen, as this information can be updated by other users. 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 CAD (coronary artery disease) NSVT (nonsustained ventricular tachycardia) Low testosterone Basal cell carcinoma Hypertension Afib Diabetes mellitus Surgical History Hx of cataract extraction Hx of eye surgery History of colonoscopy History of loop recorder Family History Father Cancer Other Diabetes Social History Smoking Status: Never smoker alcohol intake: never substance use type: denies use current occupational status: employed Travel in the last 8 weeks?: None household members: other housing: house marital status: Have you lived/traveled outside US in past 30 days?: No Contact w/someone who lives/traveled outside US past 30 days?: No Exposure to someone with infectious disease in past 14 days?: No Do you have a fever (greater than 100.4 F or 38 C)?: No Have you tested positive for COVID-19?: No Exposed to someone with COVID-19 in past 14 days?: No Do you have a sore throat?: No Do you have a cough?: No Do you have any weakness?: No Do you have any diarrhea?: No Are you experiencing any unusual bleeding?: No Do you have any muscle aches/pain?: No Do you have any abdominal pain?: No Are you experiencing loss of taste or smell?: No [facility] Anesthesia Checklist Patient Identification Patient Identification: Arm Band and Verbal (Name & ) Structural Data Admitted From: Home Planned Operative Procedure/s: excision of back cyst Consent for Planned Operative Procedure(s) Verified: Yes Verified Documents: Surgical Consent and History and Physical NPO Status Verified Time NPO: 00:00 Additional verifications Anesthesia Reactions: No Airway Assessment Mallampati Score:: Class II Dentition: Good Dentition Neurological Assessment Level of Consciousness: Awake, Alert and Appropriate Hx Seizures: No Numbness or tingling in extremities: No Anesthesia Plan Anesthesia Risk discussed: Yes Anesthesia Plan: Verified ASA Class: II Anesthesia Type: General
[2025-06-30] MEDS: CLINDAMYCIN PHOSPHATE/D5W 900 MG/50 ML PIGGYBACK 100 MG IV (11:14)
[2025-06-30] MEDS: LIDOCAINE 1% 20ML MDV 20 ML (11:30)
--- NOTE | 2025-06-30 12:11 | P.OP_ITS ---
Date of procedure: 06/30/25 Pre-op Diagnosis:: Sebaceous cyst x 2 on the back Post-op Diagnosis:: Same Procedure performed:: Excision of sebaceous cyst from the back (excisional length 3.5 cm) with intermediate complexity closure Excision of sebaceous cyst from the back (excisional length 2.5 cm) with intermediate complexity closure Surgeon:: Jose Roman MD [employer] APPRENTICE:: Tyree Orosco Anesthesia: LMA Estimated blood loss (mL): 10 Clinical Note:: Patient is a 60-year-old male from [place]. He was sent for surgical consultation for an area on the mid thoracic back. Patient was concerned about cancer as it and it increased in size. It appeared to be consistent with inflamed sebaceous cyst. He actually returned to the office a couple of days later due to some increased tenderness and throbbing. There was no indication for urgent surgical intervention at that time and he was placed on antibiotics. Plan was made for definitive excision. He presented for planned excision today on 06/30/2025. Of note the patient had developed an itching rash on his back an d was seen by his primary care provider the day before. The area was examined and it was felt that it was still amenable to excision. Examination did reveal a second sebaceous cyst somewhat superior and smaller than the previous inflamed sebaceous cyst. The inflamed sebaceous cyst that showed resolution of the inflammation. Operative findings:: Probable sebaceous cyst Operative note:: Consent was obtained patient was taken the operating room. He was positioned supine position. Anesthesia was induced via LMA. He was positioned in left lateral position. The area was prepped and draped in the standard surgical fashion. Attention was first turned to the larger previously inflamed lesion. Is marked with a skin marker and local anesthetic was infiltrated. Elliptical skin incision was made. Sharp dissection was used for dissection down through the thick dermis. Ill-defined underlying nodule was encountered consistent with a previously ruptured sebaceous cyst with appreciable dermal scarring. This was excised from the underlying subcutaneous tissue sharply and sent off as specimen labeled lower back cyst. Wound was irrigated and hemostasis was achieved with electrocautery. Deep dermal tissues were reapproximated with interrupted 3-0 Vicryl. Skin was closed with interrupted 3-0 nylon. Excisional length of 3.5 cm. Next attention was turned to the smaller lesion superior to this. This was marked with a skin marker as before. Local anesthetic was infiltrated. In a similar fashion sharp dissection was carried out through full-thickness of the skin. There was underlying tissue encountered consistent with sebaceous dermal inclusion cyst. This was dissected free using sharp dissection from the subcutaneous tissues and sent off as a specimen. Wound was irrigated and hemostasis was achieved with electrocautery. Dermal tissues were reapproximated with 3-0 Vicryl. Skin was closed with interrupted 3-0 nylon. Clean dry sterile dressings were applied. Condition: stable Disposition: PACU Complications:: None immediately apparent
--- NOTE | 2025-06-30 12:17 | P.PNANES_ITS ---
[facility] Anesthesia Record Part I Anesthesia Record I Intake, IV Amount: 500 Hydration: Adequate Estimated blood loss (mL): 25 Urine output (mL): 0 Blood Products used (#): none Blood Pressure: 138/90 SaO2: 93 Pulse Rate: 76 Airway Patency: Patent Respiratory Rate: 16 Temperature: 97.8 F Patient is:: Oral/Nasal airway, Stable and Somnolent Stable to PACU at:: 12:14
--- NOTE | 2025-07-02 07:26 | EXP.ANES.II ---
[facility] Anesthesia Record Part II Anesthesia Record Part II Discharge Time: 12:44 Destination: Surgical Day Care (OP Surgery) PACU nurse assessment reviewed?: Yes Patient Condition:: Good Anesthesia Complications:: None Swallowing reflex intact?: Yes Airway Patency: Patent Cyanosis?: No Blood Pressure: 135/88 SaO2: 95 Respiratory Rate: 18 Pulse Rate: 75 Temperature: 97.6 F Mental Status: Alert & Oriented Pain level:: 0 Nausea and/or vomitting:: None Intake, IV Amount: 0 Hydration: Adequate
[2025-07-02 07:27] VITALS: BP 135/88; PULSE 75; RESP 18; TEMP 36.4; O2SAT 95
== END 2025-06-30 13:30 | disposition home or self-care (01) ==
PROVIDERS: PCP Family Medicine; Visit Provider Surgery
PROC: (CPT 11406; principal; 2025-06-30 11:30)
DX: L72.0 Epidermal cyst (principal); Z85.828 Personal history of other malignant neoplasm of skin; R21 Rash and other nonspecific skin eruption; Z80.8 Family history of malignant neoplasm of other organs or systems; I25.10 Atherosclerotic heart disease of native coronary artery without angina pectoris; E29.1 Testicular hypofunction; I10 Essential (primary) hypertension; E11.9 Type 2 diabetes mellitus without complications; I48.91 Unspecified atrial fibrillation; Z79.82 Long term (current) use of aspirin; Z79.890 Hormone replacement therapy; Z79.899 Other long term (current) drug therapy
CPT/HCPCS: 11406; 12032; J0736; J1100; J2003; J2250; J2405; J2704; J2795; J3010; J7120